=== PATIENT | female | born 1980 ===

== ENCOUNTER 2018-02-01 21:44 | Emergency (ER) | payer OTHER ==
[2018-02-01 22:02] VITALS: BP 109/76; PULSE 100; RESP 18; TEMP 99.6; O2SAT 98
[2018-02-01] MEDS ORDERED: Tetanus/Diphtheria Toxoids 0.5 ml Syringe IM ONE ×2 (22:32→22:44)
[2018-02-01] MEDS ORDERED: Piperacillin/Tazobact 3.375 GM in Sodium Chloride 100 ML IVPB STA (22:33)
[2018-02-01] MEDS ORDERED: Piperacillin/Tazobact 3.375 gm 100 ML IVPB ONE (22:46)
[2018-02-01] MEDS ORDERED: Oxycodone/Acetaminophen 5/325 mg Tab PO STA (23:03)
[2018-02-01] MEDS ORDERED: Oxycodone/Acetaminophen 5/325 mg Tab ONE (23:11)
--- NOTE | 2018-02-02 00:45 | C.PDOC ---
History Of Present Illness 37 year old female presents to the ER with a complaint of pain and swelling to the right hand after being bitten by her dog yesterday. Patient states she initially had a small abrasion to the area with minimal pain but today she began having swelling and increasing pain. Denies fever, weakness, or numbness. Time Seen by Provider: 02/01/18 22:03 Chief Complaint (Nursing): Bite History Per: Patient History/Exam Limitations: no limitations Onset/Duration Of Symptoms: Days (Yesterday) Current Symptoms Are (Timing): Still Present Location Of Injury: Right: Hand Quality Of Symptoms: Other (Dog bite) Recent travel outside of the [place]: No - Animal Bite Description Of The Animal: Family Pet Reports Animal Appears: Well Reports Animal's Immunization Status: RID Animal Control Notified: No Past Medical History Reviewed: Historical Data, Nursing Documentation, Vital Signs Vital Signs: Last Vital Signs Temp 99.6 F 02/01/18 21:59 Pulse 100 H 02/01/18 21:59 Resp 18 02/01/18 21:59 BP 109/76 02/01/18 21:59 Pulse Ox 98 02/01/18 21:59 - Medical History PMH: Anxiety, Arthritis (LUPUS), Hypothyroidism, Migraine, Rheumatoid Arthritis Family History: States: Unknown Family Hx - Social History Hx Tobacco Use: No Hx Alcohol Use: No Hx Substance Use: No - Immunization History Hx Tetanus Toxoid Vaccination: No Hx Influenza Vaccination: No Hx Pneumococcal Vaccination: No Review Of Systems Constitutional: Negative for: Fever, Chills Musculoskeletal: Positive for: Hand Pain (Right) Skin: Positive for: Other (Dog bite) Neurological: Negative for: Weakness, Numbness Physical Exam - Physical Exam Appears: Non-toxic Skin: Warm, Dry Head: Atraumatic, Normacephalic Eye(s): bilateral: Normal Inspection Extremity: Normal ROM (x4), Capillary Refill (<2 seconds), Other (Puncture wound to dorsal right hand with moderate swelling not involving the fingers, wrist, or palmar aspect. No erythema.) Pulses: Left Radial: Normal, Right Radial: Normal Neurological/Psych: Oriented x3, Normal Speech, Normal Motor, Normal Sensation ED Course And Treatment O2 Sat by Pulse Oximetry: 98 (Room air) Pulse Ox Interpretation: Normal Progress Note: Percocet and tetanus vaccination administered. Patient is resting comfortable in the ER in no acute distress, vitals are stable, no signs of compartment syndrome seen at this time, wound was cleansed and dressed, patient given dose of IV zosyn, proper wound care instructions strictly enforced on patient, will discharge home with Rx and advised her to follow up for wound check. Disposition Counseled Patient/Family Regarding: Diagnosis, Need For Followup - Disposition Referrals: Andi Campos MD [Staff Provider] - Disposition: HOME/ ROUTINE Disposition Time: 00:43 Condition: GOOD Additional Instructions: Please follow up with PMD in [address] Campos for follwo up ' Wound care instructions as explained Arm elevation/ warm compress Return to ER if worse Prescriptions: Amoxicillin/Clavulanate [Augmentin 875 MG-125 MG] 1 tab PO BID #20 tab Ibuprofen [Motrin] 600 mg PO Q6H #20 tab Instructions: Animal Bites (DC) Forms: [employer] ([place]) - Clinical Impression Clinical Impression: Animal bite wound, Dog bite of right hand - PA / PATIENT ACCESS / Resident Statement MD/DO has reviewed & agrees with the documentation as recorded. - Scribe Statement The provider has reviewed the documentation as recorded by the Scribe Vijay Chen All medical record entries made by the Terrie were at my direction and personally dictated by me. I have reviewed the chart and agree that the record accurately reflects my personal performance of the history, physical exam, medical decision making, and the department course for this patient. I have also personally directed, reviewed, and agree with the discharge instructions and disposition.
== END 2018-02-02 00:45 | disposition home or self-care (01) ==
LOC: C.ER 21:44
DX: S61.431A Puncture wound without foreign body of right hand, initial encounter (principal); W54.0XXA Bitten by dog, initial encounter
CPT/HCPCS: 90471; 90714; 96365; 99284; J2543; J7050

== ENCOUNTER 2018-02-02 20:08 | Inpatient (IN) | payer OTHER ==
[2018-02-02] MEDS ORDERED: Sodium Chloride 0.9% 1,000 ML IV ONE (20:29)
[2018-02-02] MEDS ORDERED: Piperacillin/Tazobact 3.375 gm 100 ML IV STA (20:31)
--- NOTE | 2018-02-02 20:31 | C.PDOC ---
History Of Present Illness 37 yo female come in for re-evaluation of Right hand dog bite sustained 3 days ago. Pt reports, was bitted by her dog by accident. Pt was seen here yesterday, when tetanus given, Zosyn IV and received Rx: Augment ( took 1 dose today). Pt reports, noted pain, swelling and redness worsen " spread now from hand down to Right elbow". Otherwise, pt denies fever, chills, dizziness, sore throat, CP, SOB, cough, abd. pain, N/V, denies weakness, sensory or vascular deficits to Right hand. Pt admits, dog is UTD with vaccination including rabbis. Ambulate to Ed for evaluation, not in any apparent distress. Time Seen by Provider: 02/02/18 20:22 Chief Complaint (Nursing): Abnormal Skin Integrity History Per: Patient Past Medical History Reviewed: Historical Data, Nursing Documentation, Vital Signs Vital Signs: Last Vital Signs Temp 98.5 F 02/02/18 20:10 Pulse 93 H 02/02/18 20:10 Resp 18 02/02/18 20:10 BP 104/72 02/02/18 20:10 Pulse Ox 99 02/02/18 20:10 - Medical History PMH: Anxiety, Arthritis (LUPUS), Hypothyroidism, Migraine, Rheumatoid Arthritis Other PMH: Lupus Family History: States: Unknown Family Hx - Social History Hx Tobacco Use: No Hx Alcohol Use: Yes Hx Substance Use: No - Immunization History Hx Tetanus Toxoid Vaccination: Yes (02/01/18) Hx Influenza Vaccination: No Hx Pneumococcal Vaccination: No Review Of Systems Except As Marked, All Systems Reviewed And Found Negative. Constitutional: Negative for: Fever, Chills ENT: Negative for: Throat Pain Cardiovascular: Negative for: Chest Pain, Palpitations (i) Respiratory: Negative for: Cough, Shortness of Breath Gastrointestinal: Negative for: Nausea, Vomiting, Abdominal Pain, Diarrhea Musculoskeletal: Positive for: Arm Pain, Other (Right hand) Skin: Positive for: Lesions Neurological: Negative for: Weakness, Numbness, Altered Mental Status, Headache, Dizziness Physical Exam - Physical Exam Appears: Well, Non-toxic, No Acute Distress Skin: Normal Color, Warm, Dry, Other (Right hand: small puncture wound over dorsal aspect covered by bloody crust. Diffuse joseline aover dorsal aspect Right hand extend down to distal Right forearm, (+) proximal streaking up to Right elbow) Eye(s): bilateral: PERRL Nose: No Flaring, No Discharge Oral Mucosa: Moist, No Drooling Tongue: Normal Appearing Lips: Normal Appearing Throat: No Erythema Neck: Trachea Midline, Supple Cardiovascular: Rhythm Regular, No Murmur, No JVD Respiratory: No Decreased Breath Sounds, No Accessory Muscle Use, No Stridor, No Wheezing Gastrointestinal/Abdominal: Bowel Sounds (normal), Soft, No Tenderness, No Distention, No Guarding Extremity: Normal ROM (mild discomofrt to FAROM of Right hand due to pain, no neurovascular deficits distally to injury.), No Pedal Edema, Capillary Refill (less than 2sec to Right hand), Swelling (Right hand) Pulses: Right Radial: Normal Neurological/Psych: Oriented x3, Normal Speech, Normal Motor, Normal Sensation, Normal Reflexes ED Course And Treatment - Laboratory Results Result Diagrams: 02/02/18 20:48 02/02/18 20:48 Lab Interpretation: Abnormal O2 Sat by Pulse Oximetry: 99 Pulse Ox Interpretation: Normal Progress Note: Pt reamined stable during the ED evaluation. Blood work review and appears abnoraml, mild leukocytosis with left shift. Blood CX, UCx- pending. case discusse jonna Gao ( cover ) and admission arranged to med/surg with Dx: Right hand dog bite with cellulitis. results review and discussed with pt, agrees with plan. Disposition - Disposition Disposition: HOSPITALIZED Disposition Time: 21:07 Condition: STABLE - Clinical Impression Clinical Impression: Cellulitis
[2018-02-02] MEDS ORDERED: Piperacillin/Tazobact 3.375 gm 100 ML IVPB ONE (20:55)
[2018-02-02 20:56] LABS: BASO # 0.1 K/uL (0.0-0.2); BASO % 0.4 % (0.0-2.0); EOS # 0.2 K/uL (0.0-0.7); EOS % 1.3 % (0.0-4.0); HEMOGLOBIN 11.7 g/dL (11.0-16.0); LYMPH # 2.6 K/uL (1.0-4.3); MEAN CELL VOLUME 88.4 fL (81.0-99.0); MEAN CORPUSCULAR HEMOGLOBIN 29.6 pg (27.0-31.0); MEAN CORPUSCULAR HGB CONC 33.5 g/dL (33.0-37.0); MEAN PLATELET VOLUME 7.5 fL (7.2-11.7); MONO % 6.6 % (0.0-10.0); NEUT # 10.7 K/uL (1.8-7.0); NEUT % 73.7 % (50.0-75.0); RBC 3.97 Mil/uL (3.80-5.20); RED CELL DISTRIBUTION WIDTH 13.3 % (11.5-14.5); WHITE BLOOD COUNT 14.5 K/uL (4.8-10.8)
[2018-02-02 21:02] LABS: HCG,QUALITATIVE URINE NEGATIVE (NEGATIVE)
[2018-02-02 21:04] LABS: SQUAMOUS EPITHIAL 5 /hpf (0-5); URINE BACTERIA MOD (<OCC); URINE BILIRUBIN NEGATIVE (NEGATIVE); URINE BLOOD 2+ (NEGATIVE); URINE CLARITY Turbid (Clear); URINE COLOR Yellow (YELLOW); URINE GLUCOSE (UA) 1+ mg/dL (Normal); URINE LEUKOCYTE ESTERASE NEG Leu/uL (Negative); URINE PROTEIN 2+ mg/dL (NEGATIVE); URINE UROBILINOGEN NORMAL mg/dL (0.2-1.0)
[2018-02-02] MEDS ORDERED: Vancomycin 1 GM 1 GM/250 ML BAG IVPB ONE (21:08)
[2018-02-02 21:10] LABS: ALB/GLOB RATIO 1.2 (1.0-2.1); ALT/SGPT 15 U/L (9-52); AST/SGOT 16 U/L (14-36); BLOOD UREA NITROGEN 16 mg/dL (7-17); CALCIUM 8.7 mg/dl (8.6-10.4); GFR NON-AFRICAN AMERICAN 57
--- NOTE | 2018-02-02 22:24 | CP.PCM.HP ---
Past Patient History - Infectious Disease Hx of Infectious Diseases: None - Past Social History Smoking Status: Never Smoked - NEUROLOGICAL Hx Migraine: Yes - ENDOCRINE/METABOLIC Hx Hypothyroidism: Yes - HEMATOLOGICAL/ONCOLOGICAL Other/Comment: LUPUS - MUSCULOSKELETAL/RHEUMATOLOGICAL Hx Arthritis: Yes (LUPUS) Hx Rheumatoid Arthritis: Yes - GENITOURINARY/GYNECOLOGICAL Hx Genitourinary Disorders: Yes Other/Comment: Hx Uterine Fibroids - PSYCHIATRIC Hx Anxiety: Yes Hx Substance Use: No - SURGICAL HISTORY Hx Surgeries: No - ANESTHESIA Hx Anesthesia: No Meds Allergies/Adverse Reactions: Allergies Allergy/AdvReac Type Severity Reaction Status Date / Time No Known Allergies Allergy Verified 02/02/18 20:18 Physical Exam - Constitutional Appears: Well - Head Exam Head Exam: ATRAUMATIC, NORMAL INSPECTION, NORMOCEPHALIC - Eye Exam Eye Exam: EOMI, Normal appearance, PERRL Pupil Exam: NORMAL ACCOMODATION, PERRL - ENT Exam ENT Exam: Mucous Membranes Moist, Normal Exam - Neck Exam Neck exam: Positive for: Normal Inspection - Respiratory Exam Respiratory Exam: Clear to Auscultation Bilateral, NORMAL BREATHING PATTERN - Cardiovascular Exam Cardiovascular Exam: REGULAR RHYTHM, +S1, +S2 - GI/Abdominal Exam GI & Abdominal Exam: Diminished Bowel Sounds, Soft - Rectal Exam Rectal Exam: Deferred Results - Vital Signs Recent Vital Signs: Last Vital Signs Temp 98.5 F 02/02/18 20:10 Pulse 93 H 02/02/18 20:10 Resp 18 02/02/18 20:10 BP 104/72 02/02/18 20:10 Pulse Ox 99 02/02/18 22:04 - Labs Result Diagrams: 02/02/18 20:48 02/02/18 20:48 Labs: Laboratory Results - last 24 hr 02/02/18 02/02/18 02/02/18 20:48 20:48 20:48 WBC 14.5 H D RBC 3.97 Hgb 11.7 Hct 35.0 MCV 88.4 MCH 29.6 MCHC 33.5 RDW 13.3 Plt Count 405 H MPV 7.5 Neut % (Auto) 73.7 Lymph % (Auto) 18.0 L Ellis % (Auto) 6.6 Eos % (Auto) 1.3 Baso % (Auto) 0.4 Neut # (Auto) 10.7 H Lymph # (Auto) 2.6 Ellis # (Auto) 1.0 H Eos # (Auto) 0.2 Baso # (Auto) 0.1 ESR 31 H Sodium 138 Potassium 3.5 L Chloride 101 Carbon Dioxide 27 Anion Gap 14 BUN 16 Creatinine 1.1 Est GFR ( Amer) > 60 Est GFR (Non-Af Amer) 57 Random Glucose 161 H Calcium 8.7 Total Bilirubin 0.5 AST 16 ALT 15 Alkaline Phosphatase 53 Total Creatine Kinase 54 Total Protein 7.3 Albumin 4.0 Globulin 3.2 Albumin/Globulin Ratio 1.2 Urine Color Yellow Urine Clarity Turbid Urine pH 5.0 Ur Specific [place] 1.039 H Urine Protein 2+ H Urine Glucose (UA) 1+ Urine Ketones Trace Urine Blood 2+ H Urine Nitrate Negative Urine Bilirubin Negative Urine Urobilinogen Normal Ur Leukocyte Esterase Neg Urine RBC (Auto) 9 H Ur Squamous Epith Cells 5 Urine Bacteria Mod H Urine HCG, Qual Negative
[2018-02-03 00:18] VITALS: RESP 20
[2018-02-03] MEDS: Piperacillin/Tazobact 3.375 GM in Sodium Chloride 100 ML IVPB SCH ×2 (05:25→21:22)
[2018-02-03 06:55] LABS: BASO % 0.1 % (0.0-2.0); HEMOGLOBIN 11.6 g/dL (11.0-16.0); LYMPH # 0.6 K/uL (1.0-4.3); LYMPH % 4.4 % (20.0-40.0); MEAN CORPUSCULAR HEMOGLOBIN 30.2 pg (27.0-31.0); MEAN CORPUSCULAR HGB CONC 34.3 g/dL (33.0-37.0); MEAN PLATELET VOLUME 7.6 fL (7.2-11.7); MONO # 0.2 K/uL (0.0-0.8); MONO % 1.5 % (0.0-10.0); NEUT # 13.5 K/uL (1.8-7.0); PLATELET COUNT 362 K/uL (130-400); RBC 3.83 Mil/uL (3.80-5.20); RED CELL DISTRIBUTION WIDTH 13.2 % (11.5-14.5); WHITE BLOOD COUNT 14.3 K/uL (4.8-10.8)
[2018-02-03 08:04] LABS: ALB/GLOB RATIO 1.1 (1.0-2.1); ALBUMIN 3.7 g/dL (3.5-5.0); ALT/SGPT 23 U/L (9-52); AST/SGOT 15 U/L (14-36); BLOOD UREA NITROGEN 13 mg/dL (7-17); CALCIUM 8.5 mg/dl (8.6-10.4); GFR NON-AFRICAN AMERICAN > 60
[2018-02-03 09:45] LABS: BANDS 1 % (0-2); LYMPHOCYTE 5 % (20-40); MONOCYTE 1 % (0-10); NEUTROPHIL 93 % (50-75); TOTAL CELLS COUNTED 100
[2018-02-03 09:46] LABS: ANISOCYTOSIS SLIGHT; LARGE PLATELETS PRESENT; PLATELET ESTIMATE NORMAL (NORMAL); POLYCHROMIC SLIGHT
[2018-02-03 09:47] LABS: TOXIC GRANULATION PRESENT
[2018-02-03] MEDS: MethylPREDNISolone 40 mg Vial IVP SCH ×2 (10:49→21:21)
[2018-02-03] MEDS: Enoxaparin 40 mg Syringe SC SCH (10:49)
--- NOTE | 2018-02-03 19:36 | CP.PCM.PN ---
Subjective - Date & Time of Evaluation Date of Evaluation: 02/03/18 Time of Evaluation: 08:15 - Subjective Subjective: clinically same Objective - Vital Signs/Intake and Output Vital Signs (last 24 hours): Temp Pulse Resp BP Pulse Ox 98.5 F 63 20 120/77 99 02/03/18 15:00 02/03/18 15:00 02/03/18 15:00 02/03/18 15:00 02/03/18 15:00 Intake and Output: 02/03/18 02/04/18 18:59 06:59 Intake Total 250 Balance 250 - Medications Medications: Current Medications Enoxaparin Sodium (Lovenox) 40 mg SC DAILY [facility] Last Admin: 02/03/18 10:49 Dose: 40 mg Piperacillin Sod/Tazobactam (Sod 3.375 gm/ Sodium Chloride) 100 mls @ 200 mls/hr IVPB Q8H [facility]; Protocol Last Admin: 02/03/18 05:25 Dose: 200 mls/hr Vancomycin HCl 1 gm/ Sodium (Chloride) 250 mls @ 167 mls/hr IVPB Q24H [facility]; Protocol Influenza Virus Vaccine (Fluzone Quad [id number]) 60 mcg IM .ONCE ONE Stop: 02/04/18 10:01 Ketorolac Tromethamine (Toradol) 30 mg IVP Q8 PRN PRN Reason: Pain, severe (8-10) Last Admin: 02/03/18 17:32 Dose: 30 mg Methylprednisolone (Solu-Medrol) 40 mg IVP Q12 [facility] Last Admin: 02/03/18 10:49 Dose: 40 mg Pneumococcal Polyvalent Vaccine (Pneumovax 23 Vaccine) 0.5 ml IM .ONCE ONE Stop: 02/04/18 10:01 - Labs Labs: 02/03/18 06:48 02/03/18 06:48 - Constitutional Appears: Well - Head Exam Head Exam: ATRAUMATIC, NORMAL INSPECTION, NORMOCEPHALIC - Eye Exam Eye Exam: EOMI, Normal appearance, PERRL Pupil Exam: NORMAL ACCOMODATION, PERRL - ENT Exam ENT Exam: Mucous Membranes Moist, Normal Exam - Neck Exam Neck Exam: Full ROM, Normal Inspection. absent: Lymphadenopathy - Respiratory Exam Respiratory Exam: Decreased Breath Sounds - Cardiovascular Exam Cardiovascular Exam: REGULAR RHYTHM, +S1, +S2 - GI/Abdominal Exam GI & Abdominal Exam: Soft, Diminished Bowel Sounds - Rectal Exam Rectal Exam: Deferred
[2018-02-04] MEDS: Piperacillin/Tazobact 3.375 GM in Sodium Chloride 100 ML IVPB SCH ×3 (05:31→21:38)
[2018-02-04] MEDS: MethylPREDNISolone 40 mg Vial IVP SCH (09:46)
[2018-02-04] MEDS: Enoxaparin 40 mg Syringe SC SCH ×2 (09:46→09:53)
[2018-02-04] MEDS ORDERED: Influenza Vaccine 60 MCG/0.5 ML SYR (3 yr & up) IM ONE (10:00)
[2018-02-04] MEDS ORDERED: Pneumococcal 23-Valent Vaccine IM ONE (10:00)
--- NOTE | 2018-02-04 11:47 | CP.PCM.CON ---
History of Present Illness - History of Present Illness History of Present Illness: Hand Surgery: Dr. Campos Pt is a 37F with PMHx significant for SLE, Sjogren's, arthritis & hypothyroidism who presents to s/p dog bite to the R hand. Pt states the dog bit her on Wednesday, she came to the ER, & was given PO ABX and discharged. However, over the last few days the redness and swelling extended from her hand up to her R arm so she decided to come back to the hospital. Pt was admitted yesterday and started on IV ABx. Hand surgery called to evaluate. Currently, pt is sitting comfortably in bed. States the redness and swelling in her arm/hand has decreased significantly, however she still has pain in the R hand. She states she's able to move her arm and her hand, but it's difficult for her to make a fist. She also admits to some tingling in her 4th/5th digit upon passive flexion. Pt states she was able to squeeze some purulent fluid from a punctate lesion on her dorsal R hand but denies spontaneous drainage. Denies fevers/chills, nausea/vomiting. PMHx: as listed above PSHx: denies Social: denies smoking/EtOH/drugs NKDA Review of Systems - Review of Systems All systems: reviewed and no additional remarkable complaints except (as per HP I) Past Patient History - Infectious Disease Hx of Infectious Diseases: None - Past Medical History & Family History Past Medical History?: Yes - Past Social History Drugs: Denies - CARDIAC Hx Cardiac Disorders: No - PULMONARY Hx Respiratory Disorders: No - NEUROLOGICAL Hx Neurological Disorder: Yes Hx Migraine: Yes - HEENT Hx HEENT Problems: No - RENAL Hx Chronic Kidney Disease: No - ENDOCRINE/METABOLIC Hx Endocrine Disorders: Yes Hx Hypothyroidism: Yes - HEMATOLOGICAL/ONCOLOGICAL Hx Blood Disorders: Yes Other/Comment: LUPUS - INTEGUMENTARY Hx Dermatological Problems: No - MUSCULOSKELETAL/RHEUMATOLOGICAL Hx Musculoskeletal Disorders: Yes Hx Falls: No Hx Rheumatoid Arthritis: Yes - GASTROINTESTINAL Hx Gastrointestinal Disorders: No - GENITOURINARY/GYNECOLOGICAL Hx Genitourinary Disorders: Yes Other/Comment: Hx Uterine Fibroids - PSYCHIATRIC Hx Psychophysiologic Disorder: Yes Hx Anxiety: Yes Hx Substance Use: No - SURGICAL HISTORY Hx Surgeries: No - ANESTHESIA Hx Anesthesia: No Meds Allergies/Adverse Reactions: Allergies Allergy/AdvReac Type Severity Reaction Status Date / Time No Known Allergies Allergy Verified 02/02/18 20:18 - Medications Medications: Current Medications Enoxaparin Sodium (Lovenox) 40 mg SC DAILY [facility] Last Admin: 02/04/18 09:53 Dose: Not Given Piperacillin Sod/Tazobactam (Sod 3.375 gm/ Sodium Chloride) 100 mls @ 200 mls/hr IVPB Q8H [facility]; Protocol Last Admin: 02/04/18 05:31 Dose: 200 mls/hr Vancomycin HCl 1 gm/ Sodium (Chloride) 250 mls @ 167 mls/hr IVPB Q24H [facility]; Prot ocol Last Admin: 02/03/18 22:12 Dose: 167 mls/hr Ketorolac Tromethamine (Toradol) 30 mg IVP Q8 PRN PRN Reason: Pain, severe (8-10) Last Admin: 02/03/18 17:32 Dose: 30 mg Methylprednisolone (Solu-Medrol) 40 mg IVP Q12 [facility] Last Admin: 02/04/18 09:46 Dose: 40 mg Physical Exam - Constitutional Appears: Well, No Acute Distress - Eye Exam Eye Exam: Normal appearance - ENT Exam ENT Exam: Mucous Membranes Moist - Respiratory Exam Respiratory Exam: NORMAL BREATHING PATTERN - Cardiovascular Exam Cardiovascular Exam: RRR - GI/Abdominal Exam GI & Abdominal Exam: Soft. absent: Distended, Tenderness - Extremities Exam Additional comments: RUE: R hand with moderate swelling over MCP/PIP joints and around punctate lesion on dorsal surface, 5cc of purulent fluid expressed mixed with air bubbl es. Erythema significantly improved from previously marked borders. Intact ROM at the wrist & decreased ROM at the MCP joint. Sensory intact throughout - Neurological Exam Neurological exam: Alert, Oriented x3 - Skin Skin Exam: Dry, Warm Results - Vital Signs Recent Vital Signs: Last Vital Signs Temp 98.6 F 02/04/18 08:08 Pulse 67 02/04/18 08:08 Resp 20 02/04/18 08:08 BP 116/69 02/04/18 08:08 Pulse Ox 100 02/04/18 08:08 - Labs Result Diagrams: 02/03/18 06:48 02/03/18 06:48 Assessment & Plan - Assessment and Plan (Free Text) Assessment: 37F with R hand cellulitis s/p dog bite Plan: - f/u CT hand - cont IV ABX - f/u wound culture - further recs per Dr. Andres Marsh
--- NOTE | 2018-02-04 11:52 | CP.PCM.PN ---
Subjective - Date & Time of Evaluation Date of Evaluation: 02/04/18 Time of Evaluation: 09:40 - Subjective Subjective: Medicine progress note ( Dr. Cecy Montesinos's service) Patient was seen and examined at bedside. Patient report that she is doing well with significant improvement, however, patient is still with tenderness of the right hand dorsal surface with pus drainage on expression. Patient admits to decrease swelling and redness. Upon ROS, patient denies any symptoms of fever, chills, nausea, vomiting, palpitations. Patient has good ROM on exam and sensation. Patient is a 37 year old female with past medical history of lupus, sjorgen, resolved hypothyroidism and arthritis, who presented the ED with complaints of worsening right hand dorsal dog bite that occurred 2-3 days ago. Patient was seen initially a day after the incident and she received one dose of IV zosyn and discharge with prescription of augmentin. However, a day later, patient noted more redness spreading towards the elbow joint and increase swelling. Patient denied symptoms of fever, chills, nausea, vomiting, palpitations and chest pain. PMHx: lupus, sjorgen, resolved hypothyroidism and arthritis PSHx: Denies Medications: Recent prescription for Augmentin Allergies: NKDA Objective - Vital Signs/Intake and Output Vital Signs (last 24 hours): Temp Pulse Resp BP Pulse Ox 98.6 F 67 20 116/69 100 02/04/18 08:08 02/04/18 08:08 02/04/18 08:08 02/04/18 08:08 02/04/18 08:08 Intake and Output: 02/04/18 02/04/18 06:59 18:59 Intake Total 630 Balance 630 - Medications Medications: Current Medications Enoxaparin Sodium (Lovenox) 40 mg SC DAILY [facility] Last Admin: 02/04/18 09:53 Dose: Not Given Piperacillin Sod/Tazobactam (Sod 3.375 gm/ Sodium Chloride) 100 mls @ 200 mls/hr IVPB Q8H [facility]; Protocol Last Admin: 02/04/18 05:31 Dose: 200 mls/hr Vancomycin HCl 1 gm/ Sodium (Chloride) 250 mls @ 167 mls/hr IVPB Q24H [facility]; Protocol Last Admin: 02/03/18 22:12 Dose: 167 mls/hr Ketorolac Tromethamine (Toradol) 30 mg IVP Q8 PRN PRN Reason: Pain, severe (8-10) Last Admin: 02/03/18 17:32 Dose: 30 mg Methylprednisolone (Solu-Medrol) 40 mg IVP Q12 [facility] Last Admin: 02/04/18 09:46 Dose: 40 mg - Labs Labs: 02/03/18 06:48 02/03/18 06:48 - Constitutional Appears: Well, No Acute Distress - Head Exam Head Exam: ATRAUMATIC, NORMAL INSPECTION - Eye Exam Eye Exam: EOMI, Normal appearance - ENT Exam ENT Exam: Mucous Membranes Moist - Respiratory Exam Respiratory Exam: Clear to Ausculation Bilateral, NORMAL BREATHING PATTERN - Cardiovascular Exam Cardiovascular Exam: REGULAR RHYTHM, +S1, +S2. absent: Bradycardia, Tachycardia, Clicks, Diastolic murmur, Murmur - GI/Abdominal Exam GI & Abdominal Exam: Soft, Normal Bowel Sounds. absent: Distended, Firm, Guarding, Rigid, Tenderness - Extremities Exam Extremities Exam: Normal Inspection. absent: Calf Tenderness, Pedal Edema - Back Exam Back Exam: NORMAL INSPECTION - Neurological Exam Neurological Exam: Alert, Awake, Oriented x3 Neuro motor strength exam: Right Upper Extremity: 5 (Swelling of the right do rsal hand with pus drainage. Sensation intact with very mild limited ROM ) - Psychiatric Exam Psychiatric exam: Normal Affect, Normal Mood - Skin Skin Exam: Normal Color Assessment and Plan (1) Dog bite of right hand Assessment & Plan: Consultation: Dr. Campos---> Help appreciated * Management as per recommendation Imaging/ Labs * Leukocytosis on admission, worsening due to steroid dose 40mg IV q12h for inflammation (Steroid discontinue 02/04/18) * BC negative x24 hours * F/u CT scan * F/U wound culture Medications/Management: * Toradol 30mg IV Q8H PRN * Zosyn 3.375gm IV Q8H PRN * Vancomycin 1gm IV daily * Florastor 250mg PO BID * Warm compresses q15-20 minutes All plans and management discussed with Dr. Chelsea Montesinos Status: Acute
[2018-02-04 12:21] LABS: BASO % 0.1 % (0.0-2.0); HEMOGLOBIN 10.6 g/dL (11.0-16.0); LYMPH # 1.1 K/uL (1.0-4.3); MEAN CELL VOLUME 88.6 fL (81.0-99.0); MEAN CORPUSCULAR HEMOGLOBIN 29.5 pg (27.0-31.0); MEAN CORPUSCULAR HGB CONC 33.3 g/dL (33.0-37.0); MEAN PLATELET VOLUME 7.6 fL (7.2-11.7); MONO # 0.8 K/uL (0.0-0.8); MONO % 4.4 % (0.0-10.0); NEUT % 89.5 % (50.0-75.0); PLATELET COUNT 420 K/uL (130-400); RBC 3.61 Mil/uL (3.80-5.20); RED CELL DISTRIBUTION WIDTH 13.6 % (11.5-14.5)
[2018-02-04 12:39] LABS: ALB/GLOB RATIO 1.2 (1.0-2.1); ALBUMIN 3.8 g/dL (3.5-5.0); ALT/SGPT 50 U/L (9-52); AST/SGOT 36 U/L (14-36); BLOOD UREA NITROGEN 16 mg/dL (7-17); CALCIUM 8.4 mg/dl (8.6-10.4); GFR NON-AFRICAN AMERICAN > 60
[2018-02-04 12:40] LABS: LYMPHOCYTE 6 % (20-40); MONOCYTE 3 % (0-10); NEUTROPHIL 91 % (50-75); TOTAL CELLS COUNTED 100
[2018-02-04 12:41] LABS: PLATELET ESTIMATE SLIGHTLY INCREASED (NORMAL)
[2018-02-04 12:42] LABS: HYPOCHROMIC SLIGHT; POLYCHROMIC SLIGHT
--- NOTE | 2018-02-04 17:18 | CP.PCM.PN ---
Subjective - Date & Time of Evaluation Date of Evaluation: 02/04/18 Time of Evaluation: 07:45 - Subjective Subjective: clinically same Objective - Vital Signs/Intake and Output Vital Signs (last 24 hours): Temp Pulse Resp BP Pulse Ox 98.6 F 67 20 116/69 100 02/04/18 08:08 02/04/18 08:08 02/04/18 08:08 02/04/18 08:08 02/04/18 08:08 Intake and Output: 02/04/18 02/04/18 06:59 18:59 Intake Total 630 Balance 630 - Medications Medications: Current Medications Enoxaparin Sodium (Lovenox) 40 mg SC DAILY [facility] Last Admin: 02/04/18 09:53 Dose: Not Given Piperacillin Sod/Tazobactam (Sod 3.375 gm/ Sodium Chloride) 100 mls @ 200 mls/hr IVPB Q8H [facility]; Protocol Last Admin: 02/04/18 14:36 Dose: 200 mls/hr Vancomycin HCl 1 gm/ Sodium (Chloride) 250 mls @ 167 mls/hr IVPB Q24H [facility]; Protocol Last Admin: 02/03/18 22:12 Dose: 167 mls/hr Influenza Virus Vaccine (Fluzone Quad [id number]) 60 mcg IM .ONCE ONE Stop: 02/05/18 14:31 Ketorolac Tromethamine (Toradol) 30 mg IVP Q8 PRN PRN Reason: Pain, severe (8-10) Last Admin: 02/03/18 17:32 Dose: 30 mg Pneumococcal Polyvalent Vaccine (Pneumovax 23 Vaccine) 0.5 ml IM .ONCE ONE Stop: 02/05/18 14:31 Saccharomyces Boulardii (Florastor) 250 mg PO BID [facility] - Labs Labs: 02/04/18 12:16 02/04/18 12:16 - Constitutional Appears: Well - Head Exam Head Exam: ATRAUMATIC, NORMAL INSPECTION, NORMOCEPHALIC - Eye Exam Eye Exam: EOMI, Normal appearance, PERRL Pupil Exam: NORMAL ACCOMODATION, PERRL - ENT Exam ENT Exam: Mucous Membranes Moist, Normal Exam - Neck Exam Neck Exam: Full ROM, Normal Inspection. absent: Lymphadenopathy - Respiratory Exam Respiratory Exam: Decreased Breath Sounds - Cardiovascular Exam Cardiovascular Exam: REGULAR RHYTHM, +S1, +S2 - GI/Abdominal Exam GI & Abdominal Exam: Soft, Diminished Bowel Sounds - Rectal Exam Rectal Exam: Deferred
--- NOTE | 2018-02-04 17:38 | CP.PCM.CON ---
History of Present Illness - History of Present Illness History of Present Illness: 37F presents to s/p dog bite to the R hand. Pt states the dog bit her on Wednesday, she came to the ER, & was given PO ABX and discharged. However, over the last few days the redness and swelling extended from her hand up to her R arm so she decided to come back to the hospital. Pt was admitted yesterday and started on IV ABx. referred for ID eval IV antibiotic rx started empirically Cultures pending PMHx: SLE, Sjogren's, arthritis & hypothyroidism PSHx: denies Social: denies smoking/EtOH/drugs NKDA Review of Systems - Review of Systems All systems: reviewed and no additional remarkable complaints except - Constitutional Constitutional: As Per HPI - EENT Eyes: absent: As Per HPI, Blind Spots, Blurred Vision, Change in Vision, Decreased Night Vision, Diplopia, Discharge, Dry Eye, Exophthalmos, Floaters, Irritation, Itchy Eyes, Loss of Peripheral Vision, Pain, Photophobia, Requires Corrective Lenses, Sees Flashes, Spots in Vision, Tunnel Vision, Other Visual Disturbances, Loss of Vision, Other Nose/Mouth/Throat: absent: As Per HPI, Epistaxis, Nasal Congestion, Nasal Discharge, Nasal Obstruction, Nasal Trauma, Nose Pain, Post Nasal Drip, Sinus Pain, Sinus Pressure, Bleeding Gums, Change in Voice, Dental Pain, Dry Mouth, Dysphagia, Halitosis, Hoarsness, Lip Swelling, Mouth Lesions, Mouth Pain, Odynophagia, Sore Throat, Throat Swelling, Tongue Swelling, Facial Pain, Neck Pain, Neck Mass, Other - Breasts Breasts: absent: As Per HPI, Change in Shape, Mass, Pain, Nipple Discharge, Nipple Inversion, Skin Changes, Swelling, Other - Cardiovascular Cardiovascular: absent: As Per HPI, Acrocyanosis, Chest Pain, Chest Pain at Rest, Chest Pain with Activity, Claudication, Diaphoresis, Dyspnea, Dyspnea on Exertion, Edema, Irregular Heart Rhythm, Pain Radiating to Arm/Neck/Jaw, Leg Edema, Leg Ulcers, Lightheadedness, Orthopnea, Palpitations, Paroxysmal Nocturnal Dyspnea, Pedal Edema, Radiating Pain, Rapid Heart Rate, Slow Heart Rate, Syncope, Other - Respiratory Respiratory: absent: As Per HPI, Cough, Dyspnea, Hemoptysis, Dyspnea on Exertion, Wheezing, Snoring, Stridor, Pain on Inspiration, Chest Congestion, Excessive Mucous Production, Change in Mucous Color, Pain with Coughing, Other - Gastrointestinal Gastrointestinal: absent: As Per HPI, Abdominal Pain, Belching, Bloating, Change in Bowel Habits, Change in Stool Character, Coffee Ground Emesis, Constipation, Cramping, Diarrhea, Dyspepsia, Dysphagia, Early Satiety, Excessive Flatus, Fecal Incontinence, Heartburn, Hematemesis, Hematochezia, Loose Stools, Melena, Nausea, Odynophagia, Temesmus, Vomiting, Other - Genitourinary Genitourinary: absent: As Per HPI, Change in Urinary Stream, Difficulty Urinating, Dysuria, Flank Pain, Hematuria, Pyuria, Nocturia, Urinary Incontinence, Urinary Frequency, Urinary Hesitance, Urinary Urgency, Voiding Freq/Small Amts, Freq UTI, Hx Renal/Bladder Calculi, Hx /Renal Surgery, Bladder Distension, Other - Reproductive: Female Reproductive:Female: absent: As Per HPI, Amenorrhea, Amenorrhea/ Control, Currently Menstual, Cycle <21 Days, Cycle >35 Days, Cycle Variable, Menses 1-7 Days, Menses >/= 8 Days, Menses Variable, Cycle > 4 Weeks Between, No Menses for 6 Months, Heavy Menses, Light Menses, Normal Menses, Spotting Between Cycles, S/P Hysterectomy, Menopausal, Post Menopausal, Premenarche, Abnormal Vaginal Bleeding, Dysmenorrhea, Dyspareunia, Genital Lesions, Genital Pruritis, Pelvic Pain, Prolapse Symptoms, Sexual Dysfunction, Vaginal Discharge, Vaginal Dryness, Vaginal Odor, Vaginal Pruritis, Other - Menstruation Menstruation: absent: As Per HPI, Amenorrhea, Amenorrhea/ Control, Currently Menstual, Cycle <21 Days, Cycle >35 Days, Cycle Variable, Menses 1-7 Days, Menses >/= 8 Days, Menses Variable, Cycle > 4 Weeks Between, No Menses for 6 Months, Heavy Menses, Light Menses, Normal Menses, Spotting Between Cycles, S/P Hysterectomy, Menopausal, Post Menopausal, Premenarche, Abnormal Vaginal Bleeding, Dysmenorrhea, Other - Musculoskeletal Musculoskeletal: As Per HPI - Integumentary Integumentary: As Per HPI - Neurological Neurological: absent: As Per HPI, Abnormal Gait, Abnormal Hearing, Abnormal Movements, Abnormal Speech, Behavioral Changes, Burning Sensations, Confusion, Convulsions, Disequilibrium, Dizziness, Numbness, Focal Weakness, Frequent Falls, Headaches, Lack of Coordination, Loss of Vision, Memory Loss, Paresthesias, Radicular Pain, Restless Legs, Sensory Deficit, Syncope, Tingling, Tremor, Vertigo, Weakness, Other Visual Disturbances, Other - Psychiatric Psychiatric: absent: As Per HPI, Abnormal Sleep Pattern, Anhedonia, Anxiety, Auditory Hallucinations, Behavioral Changes, Change in Appetite, Change in Libido, Confusion, Depression, Difficulty Concentrating, Hallucinations, Homicidal Ideation, Hopelessness, Irritability, Memory Loss, Mood Swings, Panic Attacks, Paranoia, Suicidal Ideation, Visual Hallucinations, Tactile Hallucinations, Other - Hematologic/Lymphatic Hematologic: absent: As Per HPI, Easy Bleeding, Easy Bruising, Lymphadenopathy, Other Past Patient History - Infectious Disease Hx of Infectious Diseases: None - Past Medical History & Family History Past Medical History?: Yes - Past Social History Drugs: Denies - CARDIAC Hx Cardiac Disorders: No - PULMONARY Hx Respiratory Disorders: No - NEUROLOGICAL Hx Neurological Disorder: Yes Hx Migraine: Yes - HEENT Hx HEENT Problems: No - RENAL Hx Chronic Kidney Disease: No - ENDOCRINE/METABOLIC Hx Endocrine Disorders: Yes Hx Hypothyroidism: Yes - HEMATOLOGICAL/ONCOLOGICAL Hx Blood Disorders: Yes Other/Comment: LUPUS - INTEGUMENTARY Hx Dermatological Problems: No - MUSCULOSKELETAL/RHEUMATOLOGICAL Hx Musculoskeletal Disorders: Yes Hx Falls: No Hx Rheumatoid Arthritis: Yes - GASTROINTESTINAL Hx Gastrointestinal Disorders: No - GENITOURINARY/GYNECOLOGICAL Hx Genitourinary Disorders: Yes Other/Comment: Hx Uterine Fibroids - PSYCHIATRIC Hx Psychophysiologic Disorder: Yes Hx Anxiety: Yes Hx Substance Use: No - SURGICAL HISTORY Hx Surgeries: No - ANESTHESIA Hx Anesthesia: No Meds Allergies/Adverse Reactions: Allergies Allergy/AdvReac Type Severity Reaction Status Date / Time No Known Allergies Allergy Verified 02/02/18 20:18 - Medications Medications: Current Medications Enoxaparin Sodium (Lovenox) 40 mg SC DAILY [facility] Last Admin: 02/04/18 09:53 Dose: Not Given Piperacillin Sod/Tazobactam (Sod 3.375 gm/ Sodium Chloride) 100 mls @ 200 mls/hr IVPB Q8H [facility]; Protocol Last Admin: 02/04/18 14:36 Dose: 200 mls/hr Vancomycin HCl 1 gm/ Sodium (Chloride) 250 mls @ 167 mls/hr IVPB Q24H [facility]; Protocol Last Admin: 02/03/18 22:12 Dose: 167 mls/hr Influenza Virus Vaccine (Fluzone Quad [id number]) 60 mcg IM .ONCE ONE Stop: 02/05/18 14:31 Ketorolac Tromethamine (Toradol) 30 mg IVP Q8 PRN PRN Reason: Pain, severe (8-10) Last Admin: 02/03/18 17:32 Dose: 30 mg Pneumococcal Polyvalent Vaccine (Pneumovax 23 Vaccine) 0.5 ml IM .ONCE ONE Stop: 02/05/18 14:31 Saccharomyces Boulardii (Florastor) 250 mg PO BID [facility] Physical Exam - Constitutional Appears: Non-toxic, Chronically Ill - Head Exam Head Exam: NORMOCEPHALIC - Eye Exam Eye Exam: absent: Scleral icterus - ENT Exam ENT Exam: Mucous Membranes Dry - Neck Exam Neck exam: Negative for: Thyromegaly - Respiratory Exam Respiratory Exam: Decreased Breath Sounds - Cardiovascular Exam Cardiovascular Exam: REGULAR RHYTHM - GI/Abdominal Exam GI & Abdominal Exam: Diminished Bowel Sounds, Soft. absent: Tenderness - Rectal Exam Rectal Exam: Deferred - Exam Exam: NORMAL INSPECTION - Extremities Exam Extremities exam: Positive for: pedal pulses present. Negative for: calf tenderness, pedal edema, tenderness Additional comments: swelling right hand cellulitis + no pus puncture wound tender - Back Exam Back exam: absent: CVA tenderness (L), CVA tenderness (R) - Neurological Exam Neurological exam: Alert, CN II-XII Intact, Oriented x3, Reflexes Normal - Psychiatric Exam Psychiatric exam: Normal Mood - Skin Skin Exam: Dry Results - Vital Signs Recent Vital Signs: Last Vital Signs Temp 98.6 F 02/04/18 17:20 Pulse 61 02/04/18 17:20 Resp 20 02/04/18 17:20 BP 124/83 02/04/18 17:20 Pulse Ox 98 02/04/18 17:20 - Labs Result Diagrams: 02/04/18 12:16 02/04/18 12:16 Labs: Laboratory Results - last 24 hr 02/04/18 02/04/18 12:16 12:16 WBC 19.0 H RBC 3.61 L Hgb 10.6 L Hct 32.0 L MCV 88.6 MCH 29.5 MCHC 33.3 RDW 13.6 Plt Count 420 H MPV 7.6 Neut % (Auto) 89.5 H Lymph % (Auto) 6.0 L [place] % (Auto) 4.4 Eos % (Auto) 0.0 Baso % (Auto) 0.1 Neut # (Auto) 17.0 H Lymph # (Auto) 1.1 [place] # (Auto) 0.8 Eos # (Auto) 0.0 Baso # (Auto) 0.0 Neutrophils % (Manual) 91 H Lymphocytes % (Manual) 6 L Monocytes % (Manual) 3 Platelet Estimate Slightly increased H Polychromasia Slight Hypochromasia (manual) Slight Sodium 137 Potassium 4.0 Chloride 105 Carbon Dioxide 25 Anion Gap 11 BUN 16 Creatinine 0.5 L Est GFR ( Amer) > 60 Est GFR (Non-Af Amer) > 60 Random Glucose 206 H Calcium 8.4 L Phosphorus 1.7 L Magnesium 2.1 Total Bilirubin 0.3 AST 36 D ALT 50 Alkaline Phosphatase 50 Total Protein 6.9 Albumin 3.8 Globulin 3.1 Albumin/Globulin Ratio 1.2 Assessment & Plan (1) Cellulitis Status: Acute (2) Animal bite wound Status: Acute (3) Dog bite of right hand Status: Acute - Assessment and Plan (Free Text) Assessment: 37 yo female with hx of connective tissue disease is admitted with severe cellulitis / tenosynovitis dorsum right hand consider MRI Cont IV rx and follow up with Hand Surgery
[2018-02-04] MEDS ORDERED: Potassium & Sodium Phosphate PO ONE (17:57)
[2018-02-04] MEDS: Saccharomyces Boulardi 250 mg Cap PO SCH (18:12)
[2018-02-04] MEDS: Vancomycin 1 gm/NS 200 ml 1 GM/200 ML BAG IVPB SCH (19:24)
[2018-02-05 03:04] LABS: BASO % 0.1 % (0.0-2.0); EOS % 0.1 % (0.0-4.0); HEMOGLOBIN 10.3 g/dL (11.0-16.0); LYMPH # 2.9 K/uL (1.0-4.3); LYMPH % 20.1 % (20.0-40.0); MEAN CELL VOLUME 87.9 fL (81.0-99.0); MEAN CORPUSCULAR HEMOGLOBIN 28.7 pg (27.0-31.0); MEAN CORPUSCULAR HGB CONC 32.6 g/dL (33.0-37.0); MEAN PLATELET VOLUME 7.6 fL (7.2-11.7); MONO # 1.2 K/uL (0.0-0.8); NEUT # 10.4 K/uL (1.8-7.0); NEUT % 71.7 % (50.0-75.0); RBC 3.59 Mil/uL (3.80-5.20); RED CELL DISTRIBUTION WIDTH 13.3 % (11.5-14.5); WHITE BLOOD COUNT 14.5 K/uL (4.8-10.8)
[2018-02-05 03:21] LABS: ALB/GLOB RATIO 1.1 (1.0-2.1); ALBUMIN 3.4 g/dL (3.5-5.0); ALT/SGPT 157 U/L (9-52); AST/SGOT 124 U/L (14-36); BLOOD UREA NITROGEN 16 mg/dL (7-17); CALCIUM 8.2 mg/dl (8.6-10.4); GFR NON-AFRICAN AMERICAN > 60
[2018-02-05] MEDS: Piperacillin/Tazobact 3.375 GM in Sodium Chloride 100 ML IVPB SCH ×3 (06:26→22:34)
[2018-02-05] MEDS: Vancomycin 1 gm/NS 200 ml 1 GM/200 ML BAG IVPB SCH ×2 (08:27→18:09)
--- NOTE | 2018-02-05 08:28 | CP.PCM.PN ---
Subjective - Date & Time of Evaluation Date of Evaluation: 02/05/18 Time of Evaluation: 06:55 - Subjective Subjective: Hand surgery progress note for Dr. Echols Pt seen and examined at bedside this AM. Pt reports pain of the hand, but improved since yesterday. Denies any numbness or tingling. Complains of stiffness in the pinky and 4th finger of the hand but improved since yesterday. Denies any fevers or chills. Objective - Vital Signs/Intake and Output Vital Signs (last 24 hours): Temp Pulse Resp BP Pulse Ox 98.2 F 48 L 20 108/66 96 02/05/18 07:58 02/05/18 07:58 02/05/18 07:58 02/05/18 07:58 02/05/18 07:58 Intake and Output: 02/05/18 02/05/18 06:59 18:59 Intake Total 1300 Balance 1300 - Medications Medications: Current Medications Enoxaparin Sodium (Lovenox) 40 mg SC DAILY [facility] Last Admin: 02/04/18 09:53 Dose: Not Given Piperacillin Sod/Tazobactam (Sod 3.375 gm/ Sodium Chloride) 100 mls @ 200 mls/hr IVPB Q8H [facility]; Protocol Last Admin: 02/04/18 21:38 Dose: 200 mls/hr Vancomycin/Sodium Chloride (Vancomycin 1 Gm/Ns 200 Ml) 1 gm in 200 mls @ 133 mls/hr IVPB Q12H [facility]; Protocol Stop: 02/09/18 19:01 Last Admin: 02/04/18 19:24 Dose: 133 mls/hr Influenza Virus Vaccine (Fluzone Quad [id number]) 60 mcg IM .ONCE ONE Stop: 02/05/18 14:31 Ketorolac Tromethamine (Toradol) 30 mg IVP Q8 PRN PRN Reason: Pain, severe (8-10) Last Admin: 02/04/18 21:33 Dose: 30 mg Pneumococcal Polyvalent Vaccine (Pneumovax 23 Vaccine) 0.5 ml IM .ONCE ONE Stop: 02/05/18 14:31 Saccharomyces Boulardii (Florastor) 250 mg PO BID [facility] Last Admin: 02/04/18 18:12 Dose: 250 mg - Labs Labs: 02/05/18 03:00 02/05/18 03:00 - Constitutional Appears: Well, Non-toxic, No Acute Distress - Head Exam Head Exam: ATRAUMATIC, NORMOCEPHALIC - Eye Exam Eye Exam: Normal appearance. absent: Conjunctival injection, Scleral icterus - ENT Exam ENT Exam: Mucous Membranes Moist, Normal Oropharynx - Respiratory Exam Respiratory Exam: NORMAL BREATHING PATTERN. absent: Accessory Muscle Use, Respiratory Distress - Cardiovascular Exam Cardiovascular Exam: RRR - GI/Abdominal Exam GI & Abdominal Exam: Soft. absent: Distended, Tenderness - Extremities Exam Additional comments: right hand with mild swelling and faint fluctuance, mild erythema over the entire dorsum but not extending to the wrist. Small abrasion on hand closed Finger strength against resistance intact in flexion and extension, Active ROM flexion limited by pain in pinky and ring finger. Normal gross sensation and capillary refill - Neurological Exam Neurological Exam: Alert, Awake, Oriented x3 - Psychiatric Exam Psychiatric exam: Normal Affect, Normal Mood - Skin Skin Exam: Dry, Normal Color, Warm Assessment and Plan - Assessment and Plan (Free Text) Assessment: 37F s/p dog bite with cellulitis and abscess of the right hand Plan: hand is improved since yesterday but still may have fluid collection Continuous hand soaks with betadine and warm water Continue antibiotics F/U wound culture PRN pain medication Will continue to monitor closely--if patient does not improve with conservative management may consider surgical intervention Keep hand elevated Discussed with Dr. Campos, who agrees with above Dorothy Rojas, PGY2
--- NOTE | 2018-02-05 09:46 | CT ---
Date of service: 02/04/2018 PROCEDURE: CT right hand HISTORY: R hand cellulitis s/p dog bit COMPARISON: Not available TECHNIQUE: 1.25 mm contiguous axial sections were acquired through the right hand. Sagittal and coronal images were reformatted from the axial scan. The examination is performed without intravenous contrast administration. Total exam DLP: 179.63 mGy-cm. This CT exam was performed using 1 or more of the following dose reduction techniques: Automated exposure control, adjustment of the mA and/or kV according to patient size, and/or use of iterative reconstruction technique. FINDINGS: There is no evidence of fracture. There is no radiopaque foreign body. The joint spaces and articular surfaces are preserved. There is soft tissue swelling seen over the dorsal aspect of the hand. There is no fluid collection to suggest focal abscess. IMPRESSION: No evidence of fracture or radiopaque foreign body. No evidence of abscess. Please note that the request indicated the reason for exam was cellulitis. Cannot evaluate for cellulitis accurately on the basis of this examination. Correlate clinically. The preliminary findings for this examination were reported by [facility] Radiology at 9:12 p.m. on 02/04/2018. There is concurrence of this report with the preliminary findings.
[2018-02-05] MEDS: Enoxaparin 40 mg Syringe SC SCH (10:37)
[2018-02-05] MEDS: Saccharomyces Boulardi 250 mg Cap PO SCH ×2 (10:39→18:10)
--- NOTE | 2018-02-05 11:20 | CP.PCM.PN ---
Subjective - Date & Time of Evaluation Date of Evaluation: 02/05/18 Time of Evaluation: 08:00 - Subjective Subjective: clinically same Objective - Vital Signs/Intake and Output Vital Signs (last 24 hours): Temp Pulse Resp BP Pulse Ox 98.2 F 48 L 20 108/66 96 02/05/18 07:58 02/05/18 07:58 02/05/18 07:58 02/05/18 07:58 02/05/18 07:58 Intake and Output: 02/05/18 02/05/18 06:59 18:59 Intake Total 1300 540 Balance 1300 540 - Medications Medications: Current Medications Enoxaparin Sodium (Lovenox) 40 mg SC DAILY [facility] Last Admin: 02/05/18 10:37 Dose: Not Given Piperacillin Sod/Tazobactam (Sod 3.375 gm/ Sodium Chloride) 100 mls @ 200 mls/hr IVPB Q8H [facility]; Protocol Last Admin: 02/05/18 06:26 Dose: 200 mls/hr Vancomycin/Sodium Chloride (Vancomycin 1 Gm/Ns 200 Ml) 1 gm in 200 mls @ 133 mls/hr IVPB Q12H [facility]; Protocol Stop: 02/09/18 19:01 Last Admin: 02/05/18 08:27 Dose: 133 mls/hr Influenza Virus Vaccine (Fluzone Quad [id number]) 60 mcg IM .ONCE ONE Stop: 02/05/18 14:31 Ketorolac Tromethamine (Toradol) 30 mg IVP Q8 PRN PRN Reason: Pain, severe (8-10) Last Admin: 02/04/18 21:33 Dose: 30 mg Pneumococcal Polyvalent Vaccine (Pneumovax 23 Vaccine) 0.5 ml IM .ONCE ONE Stop: 02/05/18 14:31 Saccharomyces Boulardii (Florastor) 250 mg PO BID [facility] Last Admin: 02/05/18 10:39 Dose: 250 mg - Labs Labs: 02/05/18 03:00 02/05/18 03:00 - Constitutional Appears: Well - Head Exam Head Exam: ATRAUMATIC, NORMAL INSPECTION, NORMOCEPHALIC - Eye Exam Eye Exam: EOMI, Normal appearance, PERRL Pupil Exam: NORMAL ACCOMODATION, PERRL - ENT Exam ENT Exam: Mucous Membranes Moist, Normal Exam - Neck Exam Neck Exam: Full ROM, Normal Inspection. absent: Lymphadenopathy - Respiratory Exam Respiratory Exam: Decreased Breath Sounds - Cardiovascular Exam Cardiovascular Exam: REGULAR RHYTHM, +S1, +S2 - GI/Abdominal Exam GI & Abdominal Exam: Soft, Diminished Bowel Sounds - Rectal Exam Rectal Exam: Deferred
[2018-02-05] MEDS ORDERED: Pneumococcal 23-Valent Vaccine IM ONE (14:30)
[2018-02-05] MEDS ORDERED: Influenza Vaccine 60 MCG/0.5 ML SYR (3 yr & up) IM ONE (14:30)
[2018-02-06] MEDS: Piperacillin/Tazobact 3.375 GM in Sodium Chloride 100 ML IVPB SCH ×3 (05:26→21:47)
[2018-02-06 05:55] LABS: BASO % 0.5 % (0.0-2.0); EOS # 0.2 K/uL (0.0-0.7); EOS % 1.7 % (0.0-4.0); HEMOGLOBIN 10.9 g/dL (11.0-16.0); LYMPH # 3.5 K/uL (1.0-4.3); LYMPH % 34.6 % (20.0-40.0); MEAN CELL VOLUME 86.9 fL (81.0-99.0); MEAN CORPUSCULAR HEMOGLOBIN 29.1 pg (27.0-31.0); MEAN CORPUSCULAR HGB CONC 33.5 g/dL (33.0-37.0); MEAN PLATELET VOLUME 7.7 fL (7.2-11.7); MONO # 0.9 K/uL (0.0-0.8); MONO % 9.4 % (0.0-10.0); NEUT # 5.4 K/uL (1.8-7.0); NEUT % 53.8 % (50.0-75.0); RBC 3.75 Mil/uL (3.80-5.20); RED CELL DISTRIBUTION WIDTH 13.2 % (11.5-14.5)
[2018-02-06 06:18] LABS: ALB/GLOB RATIO 1.2 (1.0-2.1); ALBUMIN 3.2 g/dL (3.5-5.0); ALT/SGPT 122 U/L (9-52); AST/SGOT 40 U/L (14-36); BLOOD UREA NITROGEN 16 mg/dL (7-17); CALCIUM 7.6 mg/dl (8.6-10.4); GFR NON-AFRICAN AMERICAN > 60
[2018-02-06] MEDS: Vancomycin 1 gm/NS 200 ml 1 GM/200 ML BAG IVPB SCH ×2 (06:48→18:13)
[2018-02-06] MEDS: Saccharomyces Boulardi 250 mg Cap PO SCH ×2 (09:08→17:52)
[2018-02-06] MEDS: Enoxaparin 40 mg Syringe SC SCH (09:08)
--- NOTE | 2018-02-06 13:11 | CP.PCM.PN ---
Subjective - Date & Time of Evaluation Date of Evaluation: 02/06/18 Time of Evaluation: 13:08 - Subjective Subjective: Hand surgery progress note for Dr. Campos This 37F was seen and examined this AM at bedside. Pt reports pain of the hand, but it continues to improve. Denies any numbness or tingling. Complains of stiffness in the pinky and 4th finger of the hand but improved since yesterday. Denies any fevers or chills. Objective - Vital Signs/Intake and Output Vital Signs (last 24 hours): Temp Pulse Resp BP Pulse Ox 98.8 F 54 L 20 106/66 99 02/06/18 07:48 02/06/18 07:48 02/06/18 07:48 02/06/18 07:48 02/06/18 07:48 - Medications Medications: Current Medications Enoxaparin Sodium (Lovenox) 40 mg SC DAILY [facility] Last Admin: 02/06/18 09:08 Dose: Not Given Piperacillin Sod/Tazobactam (Sod 3.375 gm/ Sodium Chloride) 100 mls @ 200 mls/hr IVPB Q8H [facility]; Protocol Last Admin: 02/06/18 05:26 Dose: 200 mls/hr Vancomycin/Sodium Chloride (Vancomycin 1 Gm/Ns 200 Ml) 1 gm in 200 mls @ 133 mls/hr IVPB Q12H [facility]; Protocol Stop: 02/09/18 19:01 Last Admin: 02/06/18 06:48 Dose: 133 mls/hr Saccharomyces Boulardii (Florastor) 250 mg PO BID [facility] Last Admin: 02/06/18 09:08 Dose: 250 mg - Labs Labs: 02/06/18 05:51 02/06/18 05:51 - Constitutional Appears: Well, Non-toxic, No Acute Distress - Head Exam Head Exam: ATRAUMATIC, NORMOCEPHALIC - Eye Exam Eye Exam: Normal appearance. absent: Conjunctival injection, Scleral icterus - ENT Exam ENT Exam: Mucous Membranes Moist, Normal Oropharynx - Respiratory Exam Respiratory Exam: NORMAL BREATHING PATTERN. absent: Accessory Muscle Use, Respiratory Distress - Cardiovascular Exam Cardiovascular Exam: RRR - GI/Abdominal Exam GI & Abdominal Exam: Soft. absent: Distended, Tenderness - Extremities Exam Additional comments: Small abrasion on hand closed. Limited ROM in all planes due to pain. Normal gross sensation and capillary refill - Neurological Exam Neurological Exam: Alert, Awake, Oriented x3 - Psychiatric Exam Psychiatric exam: Normal Affect, Normal Mood - Skin Skin Exam: Dry, Normal Color, Warm Assessment and Plan - Assessment and Plan (Free Text) Assessment: 37F s/p dog bite with cellulitis and abscess of the right hand Plan: hand is improved since yesterday but still may have fluid collection Continuous hand soaks with betadine and warm water Continue antibiotics Wound culture gram - rods PRN pain medication Appreciate ID recs Keep hand elevated Discussed with Dr. Andres Khan PGY3
--- NOTE | 2018-02-06 16:22 | CP.PCM.PN ---
Subjective - Date & Time of Evaluation Date of Evaluation: 02/06/18 Time of Evaluation: 07:00 - Subjective Subjective: still with pain and swelling iv rx renewed cultures pending Objective - Vital Signs/Intake and Output Vital Signs (last 24 hours): Temp Pulse Resp BP Pulse Ox 98.8 F 54 L 20 106/66 99 02/06/18 07:48 02/06/18 07:48 02/06/18 07:48 02/06/18 07:48 02/06/18 07:48 Intake and Output: 02/06/18 02/06/18 06:59 18:59 Intake Total 300 Balance 300 - Medications Medications: Current Medications Enoxaparin Sodium (Lovenox) 40 mg SC DAILY [facility] Last Admin: 02/06/18 09:08 Dose: Not Given Piperacillin Sod/Tazobactam (Sod 3.375 gm/ Sodium Chloride) 100 mls @ 200 mls/hr IVPB Q8H [facility]; Protocol Last Admin: 02/06/18 13:22 Dose: 200 mls/hr Vancomycin/Sodium Chloride (Vancomycin 1 Gm/Ns 200 Ml) 1 gm in 200 mls @ 133 mls/hr IVPB Q12H [facility]; Protocol Stop: 02/09/18 19:01 Last Admin: 02/06/18 06:48 Dose: 133 mls/hr Saccharomyces Boulardii (Florastor) 250 mg PO BID [facility] Last Admin: 02/06/18 09:08 Dose: 250 mg - Labs Labs: 02/06/18 05:51 02/06/18 05:51 - Constitutional Appears: Well - Head Exam Head Exam: ATRAUMATIC, NORMAL INSPECTION, NORMOCEPHALIC - Eye Exam Eye Exam: EOMI, Normal appearance, PERRL Pupil Exam: NORMAL ACCOMODATION, PERRL - ENT Exam ENT Exam: Mucous Membranes Moist, Normal Exam - Neck Exam Neck Exam: Full ROM, Normal Inspection. absent: Lymphadenopathy - Respiratory Exam Respiratory Exam: Clear to Ausculation Bilateral, NORMAL BREATHING PATTERN - Cardiovascular Exam Cardiovascular Exam: REGULAR RHYTHM, +S1, +S2. absent: Murmur - GI/Abdominal Exam GI & Abdominal Exam: Soft, Normal Bowel Sounds. absent: Tenderness - Rectal Exam Rectal Exam: NORMAL INSPECTION - Extremities Exam Extremities Exam: Tenderness - Back Exam Back Exam: NORMAL INSPECTION - Neurological Exam Neurological Exam: Alert, Awake, CN II-XII Intact, Normal Gait, Oriented x3 - Psychiatric Exam Psychiatric exam: Normal Affect, Normal Mood - Skin Skin Exam: Dry, Intact, Normal Color, Warm Assessment and Plan (1) Cellulitis Status: Acute (2) Animal bite wound Status: Acute (3) Dog bite of right hand Status: Acute - Assessment and Plan (Free Text) Assessment: cont iv rx wound care await imaging report and cultures
--- NOTE | 2018-02-06 17:21 | CP.PCM.PN ---
Subjective - Date & Time of Evaluation Date of Evaluation: 02/06/18 Time of Evaluation: 08:00 - Subjective Subjective: clinically same Objective - Vital Signs/Intake and Output Vital Signs (last 24 hours): Temp Pulse Resp BP Pulse Ox 98.8 F 54 L 20 106/66 99 02/06/18 07:48 02/06/18 07:48 02/06/18 07:48 02/06/18 07:48 02/06/18 07:48 Intake and Output: 02/06/18 02/06/18 06:59 18:59 Intake Total 300 Balance 300 - Medications Medications: Current Medications Enoxaparin Sodium (Lovenox) 40 mg SC DAILY [facility] Last Admin: 02/06/18 09:08 Dose: Not Given Piperacillin Sod/Tazobactam (Sod 3.375 gm/ Sodium Chloride) 100 mls @ 200 mls/hr IVPB Q8H [facility]; Protocol Last Admin: 02/06/18 13:22 Dose: 200 mls/hr Vancomycin/Sodium Chloride (Vancomycin 1 Gm/Ns 200 Ml) 1 gm in 200 mls @ 133 mls/hr IVPB Q12H [facility]; Protocol Stop: 02/09/18 19:01 Last Admin: 02/06/18 06:48 Dose: 133 mls/hr Saccharomyces Boulardii (Florastor) 250 mg PO BID [facility] Last Admin: 02/06/18 09:08 Dose: 250 mg - Labs Labs: 02/06/18 05:51 02/06/18 05:51 - Constitutional Appears: Well - Head Exam Head Exam: ATRAUMATIC, NORMAL INSPECTION, NORMOCEPHALIC - Eye Exam Eye Exam: EOMI, Normal appearance, PERRL Pupil Exam: NORMAL ACCOMODATION, PERRL - ENT Exam ENT Exam: Mucous Membranes Moist, Normal Exam - Neck Exam Neck Exam: Full ROM, Normal Inspection. absent: Lymphadenopathy - Respiratory Exam Respiratory Exam: Decreased Breath Sounds - Cardiovascular Exam Cardiovascular Exam: REGULAR RHYTHM, +S1, +S2 - GI/Abdominal Exam GI & Abdominal Exam: Soft, Diminished Bowel Sounds - Rectal Exam Rectal Exam: Deferred
[2018-02-07] MEDS: Piperacillin/Tazobact 3.375 GM in Sodium Chloride 100 ML IVPB SCH ×4 (06:00→21:47)
[2018-02-07] MEDS: Vancomycin 1 gm/NS 200 ml 1 GM/200 ML BAG IVPB SCH ×2 (06:46→19:00)
[2018-02-07 07:10] LABS: BASO # 0.1 K/uL (0.0-0.2); BASO % 0.5 % (0.0-2.0); EOS # 0.3 K/uL (0.0-0.7); EOS % 2.4 % (0.0-4.0); HEMOGLOBIN 11.5 g/dL (11.0-16.0); LYMPH % 28.9 % (20.0-40.0); MEAN CELL VOLUME 87.7 fL (81.0-99.0); MEAN CORPUSCULAR HEMOGLOBIN 29.5 pg (27.0-31.0); MEAN CORPUSCULAR HGB CONC 33.6 g/dL (33.0-37.0); MEAN PLATELET VOLUME 7.5 fL (7.2-11.7); MONO # 1.2 K/uL (0.0-0.8); MONO % 8.3 % (0.0-10.0); NEUT # 8.3 K/uL (1.8-7.0); NEUT % 59.9 % (50.0-75.0); RBC 3.9 Mil/uL (3.80-5.20); RED CELL DISTRIBUTION WIDTH 12.9 % (11.5-14.5); WHITE BLOOD COUNT 13.8 K/uL (4.8-10.8)
[2018-02-07 07:48] LABS: ALB/GLOB RATIO 1.1 (1.0-2.1); ALBUMIN 3.1 g/dL (3.5-5.0); ALT/SGPT 86 U/L (9-52); AST/SGOT 23 U/L (14-36); BLOOD UREA NITROGEN 12 mg/dL (7-17); CALCIUM 8.1 mg/dl (8.6-10.4); GFR NON-AFRICAN AMERICAN > 60
--- NOTE | 2018-02-07 11:11 | CP.PCM.PN ---
Subjective - Date & Time of Evaluation Date of Evaluation: 02/07/18 Time of Evaluation: 06:50 - Subjective Subjective: Hand surgery progress note for dr. Campos Pt seen and examined this AM. No adverse events overnight. Patient reports that pain is improved and she can move her fingers more Objective - Vital Signs/Intake and Output Vital Signs (last 24 hours): Temp Pulse Resp BP Pulse Ox 98.6 F 61 20 114/79 99 02/07/18 08:06 02/07/18 08:06 02/07/18 08:06 02/07/18 08:06 02/07/18 08:06 Intake and Output: 02/07/18 02/07/18 06:59 18:59 Intake Total 300 540 Balance 300 540 - Medications Medications: Current Medications Enoxaparin Sodium (Lovenox) 40 mg SC DAILY [facility] Last Admin: 02/06/18 09:08 Dose: Not Given Piperacillin Sod/Tazobactam (Sod 3.375 gm/ Sodium Chloride) 100 mls @ 200 mls/hr IVPB Q8H [facility]; Protocol Last Admin: 02/07/18 06:05 Dose: 200 mls/hr Vancomycin/Sodium Chloride (Vancomycin 1 Gm/Ns 200 Ml) 1 gm in 200 mls @ 133 mls/hr IVPB Q12H [facility]; Protocol Stop: 02/09/18 19:01 Last Admin: 02/07/18 06:46 Dose: 133 mls/hr Saccharomyces Boulardii (Florastor) 250 mg PO BID [facility] Last Admin: 02/06/18 17:52 Dose: 250 mg Tramadol HCl (Ultram) 50 mg PO Q6 PRN PRN Reason: Pain Last Admin: 02/06/18 20:46 Dose: 50 mg - Labs Labs: 02/07/18 07:05 02/07/18 07:05 - Constitutional Appears: Well, Non-toxic, No Acute Distress - Head Exam Head Exam: ATRAUMATIC, NORMOCEPHALIC - Eye Exam Eye Exam: Normal appearance. absent: Conjunctival injection, Scleral icterus - ENT Exam ENT Exam: Mucous Membranes Moist, Normal Oropharynx - Respiratory Exam Respiratory Exam: NORMAL BREATHING PATTERN. absent: Accessory Muscle Use, Respiratory Distress - Cardiovascular Exam Cardiovascular Exam: RRR - GI/Abdominal Exam GI & Abdominal Exam: Soft. absent: Distended - Extremities Exam Additional comments: right hand with mild swelling of the dorsal hand, mild erythema, small amount of purulent fluid expressible from hand puncture site - Neurological Exam Neurological Exam: Alert, Awake, Oriented x3 - Psychiatric Exam Psychiatric exam: Normal Affect, Normal Mood - Skin Skin Exam: Dry, Normal Color, Warm Assessment and Plan - Assessment and Plan (Free Text) Assessment: 37F with right hand cellulitis and abscess after dog bite, growing pastuerella Plan: Will attempt to unroof perforation scab at bedside to allow purulent drainage Continue antibiotics per ID per the culture results Continue warm soaks and PRN pain medication Discussed with Dr. Andres Rojas, PGY2
[2018-02-07] MEDS: Saccharomyces Boulardi 250 mg Cap PO SCH ×2 (11:12→17:44)
[2018-02-07] MEDS: Enoxaparin 40 mg Syringe SC SCH (11:13)
[2018-02-07] MEDS: Lidocaine/Prilocaine 2.5%-2.5% Cream (5 gm) TOP SCH ×4 (14:00→23:54)
--- NOTE | 2018-02-07 15:20 | CP.PCM.PN ---
Subjective - Date & Time of Evaluation Date of Evaluation: 02/07/18 Time of Evaluation: 15:17 - Subjective Subjective: PGY3 Note for Dr. Christy Montesinos Pt seen and examined at bedside; states her hand feels better but still in pain; can move it much better and can almost close the hand; denies fevers/chills, DUNBAR, CP, SOB, abdominal pain, N/V/D, dyusira/freq/urg or lower extremity pain. Objective - Vital Signs/Intake and Output Vital Signs (last 24 hours): Temp Pulse Resp BP Pulse Ox 98.6 F 61 20 114/79 99 02/07/18 08:06 02/07/18 08:06 02/07/18 08:06 02/07/18 08:06 02/07/18 08:06 Intake and Output: 02/07/18 02/07/18 06:59 18:59 Intake Total 300 540 Balance 300 540 - Medications Medications: Current Medications Enoxaparin Sodium (Lovenox) 40 mg SC DAILY [facility] Last Admin: 02/07/18 11:13 Dose: Not Given Piperacillin Sod/Tazobactam (Sod 3.375 gm/ Sodium Chloride) 100 mls @ 200 mls/hr IVPB Q8H [facility]; Protocol Last Admin: 02/07/18 13:59 Dose: 200 mls/hr Vancomycin/Sodium Chloride (Vancomycin 1 Gm/Ns 200 Ml) 1 gm in 200 mls @ 133 mls/hr IVPB Q12H [facility]; Protocol Stop: 02/09/18 19:01 Last Admin: 02/07/18 06:46 Dose: 133 mls/hr Lidocaine/Prilocaine (Emla) 1 gm TOP Q4H [facility] Last Admin: 02/07/18 15:06 Dose: 1 applic Saccharomyces Boulardii (Florastor) 250 mg PO BID [facility] Last Admin: 02/07/18 11:12 Dose: 250 mg Tramadol HCl (Ultram) 50 mg PO Q6 PRN PRN Reason: Pain Last Admin: 02/06/18 20:46 Dose: 50 mg - Labs Labs: 02/07/18 07:05 02/07/18 07:05 - Constitutional Appears: Well, Non-toxic - Head Exam Head Exam: ATRAUMATIC - Eye Exam Eye Exam: EOMI, Normal appearance, PERRL - ENT Exam ENT Exam: Mucous Membranes Moist - Neck Exam Neck Exam: Full ROM. absent: Lymphadenopathy - Respiratory Exam Respiratory Exam: Clear to Ausculation Bilateral, NORMAL BREATHING PATTERN. absent: Rales, Rhonchi, Wheezes - Cardiovascular Exam Cardiovascular Exam: REGULAR RHYTHM, +S1, +S2 - GI/Abdominal Exam GI & Abdominal Exam: Soft, Normal Bowel Sounds. absent: Tenderness - Extremities Exam Extremities Exam: Full ROM. absent: Calf Tenderness Additional comments: patient still cannot close hand fully; showed picture from when first happened and swelling is markedly reduced as is erythema - Back Exam Back Exam: NORMAL INSPECTION. absent: CVA tenderness (L), CVA tenderness (R) - Neurological Exam Neurological Exam: Alert, Awake, Oriented x3 - Psychiatric Exam Psychiatric exam: Normal Affect - Skin Skin Exam: Warm Assessment and Plan - Assessment and Plan (Free Text) Assessment: 37yo F admitted for dog bite/cellulitis Dog bite of right hand Dr. Campos---> Help appreciated * Management as per recommendation * no surgical intervention planned for this time; will continue with conservative management Imaging/ Labs * Leukocytosis on admission * BC negative so far * f/u MRI of hand to r/o osteomyelitis Medications/Management: * Toradol 30mg IV Q8H PRN * Zosyn 3.375gm IV Q8H PRN * Vancomycin 1gm IV daily * Florastor 250mg PO BID * Warm compresses q15-20 minutes All plans and management discussed with Dr. Chelsea Montesinos
--- NOTE | 2018-02-07 21:23 | CARD ---
APPROVED REPORT Date of service: 02/05/2018 EKG Measurement Heart [id number] [id number] <Conclusion> Marked sinus bradycardia Abnormal ECG
--- NOTE | 2018-02-07 23:47 | CP.PCM.PN ---
Subjective - Date & Time of Evaluation Date of Evaluation: 02/07/18 Time of Evaluation: 07:30 - Subjective Subjective: clinically same Objective - Vital Signs/Intake and Output Vital Signs (last 24 hours): Temp Pulse Resp BP Pulse Ox 99.4 F 86 20 127/80 97 02/07/18 16:00 02/07/18 16:00 02/07/18 16:00 02/07/18 16:00 02/07/18 16:00 Intake and Output: 02/07/18 02/08/18 18:59 06:59 Intake Total 540 Balance 540 - Medications Medications: Current Medications Enoxaparin Sodium (Lovenox) 40 mg SC DAILY [facility] Last Admin: 02/07/18 11:13 Dose: Not Given Piperacillin Sod/Tazobactam (Sod 3.375 gm/ Sodium Chloride) 100 mls @ 200 mls/hr IVPB Q8H [facility]; Protocol Last Admin: 02/07/18 21:47 Dose: 200 mls/hr Vancomycin/Sodium Chloride (Vancomycin 1 Gm/Ns 200 Ml) 1 gm in 200 mls @ 133 mls/hr IVPB Q12H [facility]; Protocol Stop: 02/09/18 19:01 Last Admin: 02/07/18 19:00 Dose: 133 mls/hr Lidocaine/Prilocaine (Emla) 1 gm TOP Q4H [facility] Last Admin: 02/07/18 19:50 Dose: 1 applic Saccharomyces Boulardii (Florastor) 250 mg PO BID [facility] Last Admin: 02/07/18 17:44 Dose: 250 mg Tramadol HCl (Ultram) 50 mg PO Q6 PRN PRN Reason: Pain Last Admin: 02/06/18 20:46 Dose: 50 mg - Labs Labs: 02/07/18 07:05 02/07/18 07:05 - Constitutional Appears: Well - Head Exam Head Exam: ATRAUMATIC, NORMAL INSPECTION, NORMOCEPHALIC - Eye Exam Eye Exam: EOMI, Normal appearance, PERRL Pupil Exam: NORMAL ACCOMODATION, PERRL - ENT Exam ENT Exam: Mucous Membranes Moist, Normal Exam - Neck Exam Neck Exam: Full ROM, Normal Inspection. absent: Lymphadenopathy - Respiratory Exam Respiratory Exam: Decreased Breath Sounds - Cardiovascular Exam Cardiovascular Exam: REGULAR RHYTHM, +S1, +S2 - GI/Abdominal Exam GI & Abdominal Exam: Soft, Diminished Bowel Sounds - Rectal Exam Rectal Exam: Deferred
[2018-02-08] MEDS: Lidocaine/Prilocaine 2.5%-2.5% Cream (5 gm) TOP SCH ×7 (03:38→23:30)
[2018-02-08] MEDS: Piperacillin/Tazobact 3.375 GM in Sodium Chloride 100 ML IVPB SCH (05:50)
[2018-02-08 06:46] LABS: BASO # 0.1 K/uL (0.0-0.2); BASO % 0.5 % (0.0-2.0); EOS # 0.2 K/uL (0.0-0.7); EOS % 1.6 % (0.0-4.0); HEMOGLOBIN 11.5 g/dL (11.0-16.0); LYMPH # 1.9 K/uL (1.0-4.3); LYMPH % 16.6 % (20.0-40.0); MEAN CORPUSCULAR HEMOGLOBIN 28.6 pg (27.0-31.0); MEAN CORPUSCULAR HGB CONC 32.9 g/dL (33.0-37.0); MEAN PLATELET VOLUME 7.5 fL (7.2-11.7); MONO % 8.5 % (0.0-10.0); NEUT # 8.2 K/uL (1.8-7.0); NEUT % 72.8 % (50.0-75.0); RBC 4.03 Mil/uL (3.80-5.20); RED CELL DISTRIBUTION WIDTH 13.3 % (11.5-14.5); WHITE BLOOD COUNT 11.3 K/uL (4.8-10.8)
[2018-02-08] MEDS: Vancomycin 1 gm/NS 200 ml 1 GM/200 ML BAG IVPB SCH ×2 (06:48→19:59)
[2018-02-08 07:39] LABS: ALB/GLOB RATIO 1.1 (1.0-2.1); ALBUMIN 3.3 g/dL (3.5-5.0); ALT/SGPT 80 U/L (9-52); AST/SGOT 25 U/L (14-36); BLOOD UREA NITROGEN 15 mg/dL (7-17); CALCIUM 8.3 mg/dl (8.6-10.4); GFR NON-AFRICAN AMERICAN > 60
--- NOTE | 2018-02-08 08:53 | CP.PCM.PN ---
Subjective - Date & Time of Evaluation Date of Evaluation: 02/08/18 Time of Evaluation: 07:30 - Subjective Subjective: clinically same Objective - Vital Signs/Intake and Output Vital Signs (last 24 hours): Temp Pulse Resp BP Pulse Ox 98.8 F 79 20 117/76 98 02/08/18 00:00 02/08/18 00:00 02/08/18 00:00 02/08/18 00:00 02/08/18 00:00 Intake and Output: 02/08/18 02/08/18 06:59 18:59 Intake Total 250 Balance 250 - Medications Medications: Current Medications Enoxaparin Sodium (Lovenox) 40 mg SC DAILY [facility] Last Admin: 02/07/18 11:13 Dose: Not Given Vancomycin/Sodium Chloride (Vancomycin 1 Gm/Ns 200 Ml) 1 gm in 200 mls @ 133 mls/hr IVPB Q12H [facility]; Protocol Stop: 02/09/18 19:01 Last Admin: 02/08/18 06:48 Dose: 133 mls/hr Lidocaine/Prilocaine (Emla) 1 gm TOP Q4H [facility] Last Admin: 02/08/18 03:38 Dose: 1 applic Saccharomyces Boulardii (Florastor) 250 mg PO BID [facility] Last Admin: 02/07/18 17:44 Dose: 250 mg Tramadol HCl (Ultram) 50 mg PO Q6 PRN PRN Reason: Pain Last Admin: 02/06/18 20:46 Dose: 50 mg - Labs Labs: 02/08/18 06:31 02/08/18 06:31 - Constitutional Appears: Well - Head Exam Head Exam: ATRAUMATIC, NORMAL INSPECTION, NORMOCEPHALIC - Eye Exam Eye Exam: EOMI, Normal appearance, PERRL Pupil Exam: NORMAL ACCOMODATION, PERRL - ENT Exam ENT Exam: Mucous Membranes Moist, Normal Exam - Neck Exam Neck Exam: Full ROM, Normal Inspection. absent: Lymphadenopathy - Respiratory Exam Respiratory Exam: Decreased Breath Sounds - Cardiovascular Exam Cardiovascular Exam: REGULAR RHYTHM, +S1, +S2 - GI/Abdominal Exam GI & Abdominal Exam: Soft, Diminished Bowel Sounds - Rectal Exam Rectal Exam: Deferred Assessment and Plan - Assessment and Plan (Free Text) Plan: CAT scan revealed no fracture no foreign body no evidence of abscess No soft tissue swelling indicating a cellulitis Continue IV antibiotic Follow-up with orthopedic Follow-up with ID As ordered
[2018-02-08] MEDS: Enoxaparin 40 mg Syringe SC SCH (10:00)
[2018-02-08] MEDS: Saccharomyces Boulardi 250 mg Cap PO SCH ×2 (11:39→18:06)
--- NOTE | 2018-02-08 13:36 | CP.PCM.PN ---
Subjective - Date & Time of Evaluation Date of Evaluation: 02/08/18 Time of Evaluation: 10:00 - Subjective Subjective: Medicine progress note ( Dr. Cecy Montesinos's service) Patient was seen and examined at bedside. Patient report that she is doing well with significant improvement, however, patient is still with tenderness of the right hand dorsal surface s/p incision and drainage at bedside 02/07/18, which expressed a small amount of serous fluid was expressed, with no purulent fluid expressed. Patient denies any symptoms of fever, chills, nausea, vomiting, right hand numbness/tingling, but patient is with good right hand ROM. Objective - Vital Signs/Intake and Output Vital Signs (last 24 hours): Temp Pulse Resp BP Pulse Ox 98.5 F 60 20 110/74 97 02/08/18 07:00 02/08/18 07:00 02/08/18 07:00 02/08/18 07:00 02/08/18 07:00 Intake and Output: 02/08/18 02/08/18 06:59 18:59 Intake Total 250 Balance 250 - Medications Medications: Current Medications Enoxaparin Sodium (Lovenox) 40 mg SC DAILY [facility] Last Admin: 02/08/18 10:00 Dose: Not Given Vancomycin/Sodium Chloride (Vancomycin 1 Gm/Ns 200 Ml) 1 gm in 200 mls @ 133 mls/hr IVPB Q12H [facility]; Protocol Stop: 02/09/18 19:01 Last Admin: 02/08/18 06:48 Dose: 133 mls/hr Lidocaine/Prilocaine (Emla) 1 gm TOP Q4H [facility] Last Admin: 02/08/18 11:38 Dose: 1 applic Saccharomyces Boulardii (Florastor) 250 mg PO BID [facility] Last Admin: 02/08/18 11:39 Dose: 250 mg Tramadol HCl (Ultram) 50 mg PO Q6 PRN PRN Reason: Pain Last Admin: 02/06/18 20:46 Dose: 50 mg - Labs Labs: 02/08/18 06:31 02/08/18 06:31 - Constitutional Appears: Well, No Acute Distress - Head Exam Head Exam: ATRAUMATIC, NORMAL INSPECTION - Eye Exam Eye Exam: EOMI, Normal appearance - ENT Exam ENT Exam: Mucous Membranes Moist - Respiratory Exam Respiratory Exam: Clear to Ausculation Bilateral, NORMAL BREATHING PATTERN. absent: Chest Wall Tenderness, Decreased Breath Sounds, Rhonchi, Wheezes - Cardiovascular Exam Cardiovascular Exam: REGULAR RHYTHM, +S1, +S2. absent: Murmur - GI/Abdominal Exam GI & Abdominal Exam: Soft, Normal Bowel Sounds. absent: Distended, Firm, Guarding, Rigid, Tenderness - Extremities Exam Extremities Exam: Normal Inspection. absent: Calf Tenderness, Joint Swelling, Pedal Edema, Tenderness Additional comments: Right dorsal hand dog bite Significant decrease in swelling and redness with no drainage - Neurological Exam Neurological Exam: Alert, Awake, Oriented x3 Neuro motor strength exam: Right Upper Extremity: 5 - Psychiatric Exam Psychiatric exam: Normal Affect - Skin Skin Exam: Normal Color Assessment and Plan (1) Dog bite of right hand Assessment & Plan: Consultation: Dr. Campos---> Help appreciated * Management as per recommendation Imaging/ Labs * Leukocytosis on admission, worsening due to steroid dose 40mg IV q12h for inflammation (Steroid discontinue 02/04/18) * BC negative x24 hours * Right upper CT scan: No evidence of fracture or radiopaque foreign body. No evidence of abscess. Please note that the request indicated the reason for exam was cellulitis. Cannot evaluate for cellulitis accurately on the basis of this examination. Correlate clinically. * Wound Culture: Positive for Pasturella species * F/u MRI to rule out osteomyelitis Medications/Management: * Toradol 30mg IV Q8H PRN * Vancomycin 1gm IV daily * Florastor 250mg PO BID * Warm compresses q15-20 minutes Disposition: Will folloe up MRI and then determine discharge plan in terms of outpatient antibiotics All plans and management discussed with Dr. Chelsea Montesinos Status: Acute
--- NOTE | 2018-02-08 15:13 | CP.PCM.PN ---
Subjective - Date & Time of Evaluation Date of Evaluation: 02/08/18 Time of Evaluation: 07:20 - Subjective Subjective: Hand surgery progress note for Dr. Campos Pt seen and examined this AM. no adverse events overnight. Patient denies any fevers chills and states her swelling and mobility in the right hand is improved Objective - Vital Signs/Intake and Output Vital Signs (last 24 hours): Temp Pulse Resp BP Pulse Ox 98.5 F 60 20 110/74 97 02/08/18 07:00 02/08/18 07:00 02/08/18 07:00 02/08/18 07:00 02/08/18 07:00 Intake and Output: 02/08/18 02/08/18 06:59 18:59 Intake Total 250 Balance 250 - Medications Medications: Current Medications Enoxaparin Sodium (Lovenox) 40 mg SC DAILY [facility] Last Admin: 02/08/18 10:00 Dose: Not Given Vancomycin/Sodium Chloride (Vancomycin 1 Gm/Ns 200 Ml) 1 gm in 200 mls @ 133 mls/hr IVPB Q12H [facility]; Protocol Stop: 02/09/18 19:01 Last Admin: 02/08/18 06:48 Dose: 133 mls/hr Lidocaine/Prilocaine (Emla) 1 gm TOP Q4H [facility] Last Admin: 02/08/18 11:38 Dose: 1 applic Saccharomyces Boulardii (Florastor) 250 mg PO BID [facility] Last Admin: 02/08/18 11:39 Dose: 250 mg Tramadol HCl (Ultram) 50 mg PO Q6 PRN PRN Reason: Pain Last Admin: 02/06/18 20:46 Dose: 50 mg - Labs Labs: 02/08/18 06:31 02/08/18 06:31 - Constitutional Appears: Well, Non-toxic, No Acute Distress - Head Exam Head Exam: ATRAUMATIC, NORMOCEPHALIC - Eye Exam Eye Exam: Normal appearance. absent: Conjunctival injection, Scleral icterus - ENT Exam ENT Exam: Mucous Membranes Moist, Normal Oropharynx - Respiratory Exam Respiratory Exam: NORMAL BREATHING PATTERN. absent: Accessory Muscle Use, Respiratory Distress - Cardiovascular Exam Cardiovascular Exam: RRR - GI/Abdominal Exam GI & Abdominal Exam: Soft. absent: Distended, Tenderness - Extremities Exam Additional comments: right hand with mild swelling improved from yesterday, normal ROM, small amount of serous fluid output expressed - Neurological Exam Neurological Exam: Alert, Awake, Oriented x3 - Psychiatric Exam Psychiatric exam: Normal Affect, Normal Mood Assessment and Plan - Assessment and Plan (Free Text) Assessment: 37F with infected dog bite right hand with pasteurella Plan: Continue antibiotics per ID recommendations Continue hand activities No surgical intervention warranted at this time Patient is clear for discharge with PO antibiotics from a surgical standpoint. Patient may follow up with Dr. Campos at this office if needed Discussed with Dr. Campos, who agrees with above Dorothy Rojas, PGY2
--- NOTE | 2018-02-08 15:23 | MRI ---
Date of service: 02/08/2018 PROCEDURE: MRI of the right hand without contrast. HISTORY: right hand/wrist for infectoin COMPARISON: None available. TECHNIQUE: Axial coronal and sagittal MRI images of the right hand were obtained without contrast administration. FINDINGS: There is a subcutaneous edema and swelling noted at the dorsal aspect of the right hand at the level of 4th and 5th metacarpal bones extending from the level of the wrist to the proximal phalanx of the 4th and 5th fingers. No evidence of discrete drainable fluid collection. No evidence of tendon tear or injury. There is a small joint effusion noted at the 5th metacarpophalangeal joint associated with mild widening of the joint is space. The possibility of the arthritic changes or infectious process is not totally excluded. No evidence of significant bone marrow edema or cortical erosion in the visualized osseous structures. IMPRESSION: Subcutaneous soft tissue edema and swelling noted at the plantar aspect of the right hand extending from the wrist to the proximal portion of the 4th and 5th fingers. Small joint effusion noted at the 5th metacarpophalangeal joint. The possibility of infectious process including septic arthritis is not totally excluded. Please correlate clinically. No evidence of discrete drainable fluid collection.
[2018-02-09] MEDS: Lidocaine/Prilocaine 2.5%-2.5% Cream (5 gm) TOP SCH ×3 (03:30→11:30)
[2018-02-09] MEDS: Vancomycin 1 gm/NS 200 ml 1 GM/200 ML BAG IVPB SCH (06:40)
[2018-02-09 07:29] LABS: BASO # 0.1 K/uL (0.0-0.2); EOS # 0.3 K/uL (0.0-0.7); EOS % 2.8 % (0.0-4.0); LYMPH % 32.2 % (20.0-40.0); MEAN CELL VOLUME 87.7 fL (81.0-99.0); MEAN CORPUSCULAR HEMOGLOBIN 29.1 pg (27.0-31.0); MEAN CORPUSCULAR HGB CONC 33.2 g/dL (33.0-37.0); MEAN PLATELET VOLUME 7.4 fL (7.2-11.7); MONO % 10.4 % (0.0-10.0); NEUT % 53.6 % (50.0-75.0); RBC 4.12 Mil/uL (3.80-5.20); RED CELL DISTRIBUTION WIDTH 13.4 % (11.5-14.5); WHITE BLOOD COUNT 9.3 K/uL (4.8-10.8)
[2018-02-09 07:45] LABS: ALB/GLOB RATIO 1.2 (1.0-2.1); ALBUMIN 3.5 g/dL (3.5-5.0); ALT/SGPT 62 U/L (9-52); AST/SGOT 23 U/L (14-36); BLOOD UREA NITROGEN 15 mg/dL (7-17); CALCIUM 8.4 mg/dl (8.6-10.4); GFR NON-AFRICAN AMERICAN > 60
--- NOTE | 2018-02-09 07:46 | CP.PCM.PN ---
Subjective - Date & Time of Evaluation Date of Evaluation: 02/09/18 Time of Evaluation: 07:25 - Subjective Subjective: Medicine progress note ( Dr. Cecy Montesinos's service) Patient was seen and examined at bedside. Patient report that she is doing well with significant improvement, however, patient is still with tenderness of the right hand dorsal surface s/p incision and drainage at bedside 02/07/18, which expressed a small amount of serous fluid was expressed, with no purulent fluid expressed. Patient denies any symptoms of fever, chills, nausea, vomiting, right hand numbness/tingling, but patient is with good right hand ROM.Overall, patient is doing very well. Objective - Vital Signs/Intake and Output Vital Signs (last 24 hours): Temp Pulse Resp BP Pulse Ox 99.5 F 77 20 123/80 96 02/09/18 00:00 02/09/18 00:00 02/09/18 00:00 02/09/18 00:00 02/09/18 00:00 Intake and Output: 02/09/18 02/09/18 06:59 18:59 Intake Total 250 Balance 250 - Medications Medications: Current Medications Enoxaparin Sodium (Lovenox) 40 mg SC DAILY [facility] Last Admin: 02/08/18 10:00 Dose: Not Given Vancomycin/Sodium Chloride (Vancomycin 1 Gm/Ns 200 Ml) 1 gm in 200 mls @ 133 mls/hr IVPB Q12H [facility]; Protocol Stop: 02/09/18 19:01 Last Admin: 02/09/18 06:40 Dose: 133 mls/hr Lidocaine/Prilocaine (Emla) 1 gm TOP Q4H [facility] Last Admin: 02/09/18 03:30 Dose: Not Given Saccharomyces Boulardii (Florastor) 250 mg PO BID [facility] Last Admin: 02/08/18 18:06 Dose: 250 mg Tramadol HCl (Ultram) 50 mg PO Q6 PRN PRN Reason: Pain Last Admin: 02/06/18 20:46 Dose: 50 mg - Labs Labs: 02/08/18 06:31 02/08/18 06:31 - Constitutional Appears: Well, No Acute Distress - Head Exam Head Exam: ATRAUMATIC, NORMAL INSPECTION - Eye Exam Eye Exam: EOMI, Normal appearance - ENT Exam ENT Exam: Mucous Membranes Moist - Respiratory Exam Respiratory Exam: Clear to Ausculation Bilateral, NORMAL BREATHING PATTERN. absent: Chest Wall Tenderness, Decreased Breath Sounds, Prolonged Expiratory Phase, Rales, Rhonchi, Wheezes - Cardiovascular Exam Cardiovascular Exam: REGULAR RHYTHM, +S1, +S2. absent: Murmur - GI/Abdominal Exam GI & Abdominal Exam: Soft, Normal Bowel Sounds. absent: Distended, Guarding, Rigid, Tenderness - Extremities Exam Extremities Exam: Normal Inspection. absent: Calf Tenderness, Pedal Edema Additional comments: Right dorsal hand dog bite Significant decrease in swelling and redness with no drainage Good ROM and sensation - Neurological Exam Neurological Exam: Alert, Awake, Normal Gait, Oriented x3 - Psychiatric Exam Psychiatric exam: Normal Affect - Skin Skin Exam: Normal Color Assessment and Plan (1) Dog bite of right hand Assessment & Plan: Consultation: Dr. Campos---> Help appreciated * Management as per recommendation Imaging/ Labs * Leukocytosis on admission, worsening due to steroid dose 40mg IV q12h for inflammation (Steroid discontinue 02/04/18) * BC negative x24 hours * Right upper CT scan: No evidence of fracture or radiopaque foreign body. No evidence of abscess. Please note that the request indicated the reason for exam was cellulitis. Cannot evaluate for cellulitis accurately on the basis of this examination. Correlate clinically. * MRI: Subcutaneous soft tissue edema and swelling noted at the plantar aspect of the right hand extending from the wrist to the proximal portion of the 4th and 5th fingers. Small joint effusion noted at the 5th metacarpophalangeal joint. The possibility of infectious process including septic arthritis is not totally excluded. Please correlate clinically. No evidence of discrete drainable fluid collection. * Wound Culture: Positive for Pasturella species Medications/Management: * Toradol 30mg IV Q8H PRN * Vancomycin 1gm IV daily * Florastor 250mg PO BID * Warm compresses q15-20 minutes Disposition: Please discharge patient home today Please take the following antibiotics for the next 10 days: Augmentin (875/125mg PO every 12 hours for 10 days. Please take with yogurt or probiotics Please follow up with your primary care physician, Dr. MORALES in 5-7 days for follow up wound care Please follow up with Hand Surgeon as needed, Dr. Campos Please continue to move your hand around and apply warm compresses every 15-30 minutes as needed Please keep wound clean Please continue to hydrate Please take care All plans and management discussed with Dr. Chelsea Montesinos Status: Acute
[2018-02-09] MEDS: Saccharomyces Boulardi 250 mg Cap PO SCH (11:11)
[2018-02-09] MEDS: Enoxaparin 40 mg Syringe SC SCH (11:11)
--- NOTE | 2018-02-09 12:13 | CP.PCM.PN ---
Subjective - Date & Time of Evaluation Date of Evaluation: 02/09/18 Time of Evaluation: 08:00 - Subjective Subjective: + pasteurella culture on IV rx improving Objective - Vital Signs/Intake and Output Vital Signs (last 24 hours): Temp Pulse Resp BP Pulse Ox 97.4 F L 72 20 132/90 100 02/09/18 07:54 02/09/18 07:54 02/09/18 07:54 02/09/18 07:54 02/09/18 07:54 Intake and Output: 02/09/18 02/09/18 06:59 18:59 Intake Total 250 Balance 250 - Medications Medications: Current Medications Enoxaparin Sodium (Lovenox) 40 mg SC DAILY [facility] Last Admin: 02/09/18 11:11 Dose: Not Given Vancomycin/Sodium Chloride (Vancomycin 1 Gm/Ns 200 Ml) 1 gm in 200 mls @ 133 mls/hr IVPB Q12H [facility]; Protocol Stop: 02/09/18 19:01 Last Admin: 02/09/18 06:40 Dose: 133 mls/hr Lidocaine/Prilocaine (Emla) 1 gm TOP Q4H [facility] Last Admin: 02/09/18 11:10 Dose: Not Given Saccharomyces Boulardii (Florastor) 250 mg PO BID [facility] Last Admin: 02/09/18 11:11 Dose: 250 mg Tramadol HCl (Ultram) 50 mg PO Q6 PRN PRN Reason: Pain Last Admin: 02/06/18 20:46 Dose: 50 mg - Labs Labs: 02/09/18 07:20 02/09/18 07:20 Assessment and Plan (1) Cellulitis Status: Acute (2) Animal bite wound Status: Acute (3) Dog bite of right hand Status: Acute
--- NOTE | 2018-02-09 14:29 | CP.PCM.PN ---
Subjective - Date & Time of Evaluation Date of Evaluation: 02/09/18 Time of Evaluation: 07:20 - Subjective Subjective: clinically same Objective - Vital Signs/Intake and Output Vital Signs (last 24 hours): Temp Pulse Resp BP Pulse Ox 97.4 F L 72 20 132/90 100 02/09/18 07:54 02/09/18 07:54 02/09/18 07:54 02/09/18 07:54 02/09/18 07:54 Intake and Output: 02/09/18 02/09/18 06:59 18:59 Intake Total 250 Balance 250 - Medications Medications: Current Medications Enoxaparin Sodium (Lovenox) 40 mg SC DAILY [facility] Last Admin: 02/09/18 11:11 Dose: Not Given Lidocaine/Prilocaine (Emla) 1 gm TOP Q4H [facility] Last Admin: 02/09/18 11:30 Dose: Not Given Saccharomyces Boulardii (Florastor) 250 mg PO BID [facility] Last Admin: 02/09/18 11:11 Dose: 250 mg Tramadol HCl (Ultram) 50 mg PO Q6 PRN PRN Reason: Pain Last Admin: 02/06/18 20:46 Dose: 50 mg - Labs Labs: 02/09/18 07:20 02/09/18 07:20 - Constitutional Appears: Well - Head Exam Head Exam: ATRAUMATIC, NORMAL INSPECTION, NORMOCEPHALIC - Eye Exam Eye Exam: EOMI, Normal appearance, PERRL Pupil Exam: NORMAL ACCOMODATION, PERRL - ENT Exam ENT Exam: Mucous Membranes Moist, Normal Exam - Neck Exam Neck Exam: Full ROM, Normal Inspection. absent: Lymphadenopathy - Respiratory Exam Respiratory Exam: Decreased Breath Sounds - Cardiovascular Exam Cardiovascular Exam: REGULAR RHYTHM, +S1, +S2 - GI/Abdominal Exam GI & Abdominal Exam: Soft, Diminished Bowel Sounds - Rectal Exam Rectal Exam: Deferred
[2018-02-09 17:57] VITALS: BP 122/77; PULSE 85; TEMP 99.5; O2SAT 99
== END 2018-02-09 18:36 | disposition home or self-care (01) | DRG 277 ==
LOC: C.ER 20:08 → C.9E 21:07 → EEVIPCON 21:07 → C.3T 22:21
PROVIDERS: ADMIT Internal Medicine Nephrology; ATTEND Internal Medicine Nephrology
PROC: 0H9FXZZ Drainage of Right Hand Skin, External Approach (ICD-10-PCS; principal; 2018-02-07)
DX: L03.113 Cellulitis of right upper limb (principal); M32.9 Systemic lupus erythematosus, unspecified; E03.9 Hypothyroidism, unspecified; L02.511 Cutaneous abscess of right hand; M06.9 Rheumatoid arthritis, unspecified; M35.00 Sjogren syndrome, unspecified; W54.0XXA Bitten by dog, initial encounter; M65.9 Synovitis and tenosynovitis, unspecified; B96.89 Other specified bacterial agents as the cause of diseases classified elsewhere

== ENCOUNTER 2018-03-10 16:45 | Emergency (ER) | payer OTHER ==
[2018-03-10 17:02] VITALS: TEMP 98.1
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
[2018-03-10 19:22] VITALS: BP 122/81; PULSE 78; RESP 16; O2SAT 98
--- NOTE | 2018-03-11 18:33 | CARD ---
APPROVED REPORT Date of service: 03/10/2018 EKG Measurement Heart [id number] ID [id number] <Conclusion> Normal sinus rhythm Normal ECG
== END 2018-03-10 19:21 | disposition home or self-care (01) ==
LOC: C.ER 16:45
DX: S13.4XXA Sprain of ligaments of cervical spine, initial encounter (principal); V49.9XXA Car occupant (driver) (passenger) injured in unspecified traffic accident, initial encounter; M32.9 Systemic lupus erythematosus, unspecified; E03.9 Hypothyroidism, unspecified; M06.9 Rheumatoid arthritis, unspecified
CPT/HCPCS: 71046; 72040; 84703; 93005; 96372; 99284; J1885